=== PATIENT | female | born 1955 | race Hispanic/Latino ===

== ENCOUNTER 2020-02-25 09:55 | Emergency (ER) | payer OTHER ==
[2020-02-25] MEDS ORDERED: PANTOPRAZOLE 40 MG INJ ONE (12:52)
[2020-02-25] MEDS ORDERED: FENTANYL CITR 100 MCG/2 ML ONE (12:52)
[2020-02-25] MEDS ORDERED: NA CHLORIDE 0.9% 1,000 ML ONE (12:52)
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
--- NOTE | 2020-02-25 14:23 | EDPHYS ---
Physician Documentation [facility] Name: Amanda Valle Age: 64 yrs Sex: Female : 1955 Arrival Date: 02/25/2020 Time: 10:00 Bed 20 Private MD: ED Physician Jass Yusuf HPI: 02/24 14:34 This 64 yrs old Female presents to ER via Ambulatory with complaints of Dr. deirdre Brian sent for COVID TESTING. 14:34 Onset: The symptoms/episode began/occurred suddenly, 3 week(s) ago, and became snw persistent. Associated signs and symptoms: The patient has no apparent associated signs or symptoms. Modifying factors: The patient symptoms are alleviated by nothing. hx of migraines but imitrex did not make them cease, repeated shot one week later. Pt states headache is still present every day. The patient has been recently seen by a physician: the patient's primary care provider, Dr. Brian with similar presenting complaints, sent to ED for CoVid testing. Historical: - Allergies: 10:28 PENICILLINS; em - PMHx: 10:28 Anxiety; Depression; High Cholesterol; Kidney stones; Hypertension; em - PSHx: 10:28 Bladder suspension; Hysterectomy; Tonsillectomy; Cholecystectomy; hemoroidectomy; em - Immunization history:: Adult Immunizations up to date. - Social history:: Smoking status: Patient denies any tobacco usage or history of. ROS: 14:34 Constitutional: Negative for fever, chills, and weight loss, Eyes: Negative for injury, snw pain, redness, and discharge, ENT: Negative for injury, pain, and discharge, Neck: Negative for injury, pain, and swelling, Cardiovascular: Negative for chest pain, palpitations, and edema, Respiratory: Negative for shortness of breath, cough, wheezing, and pleuritic chest pain, Abdomen/GI: Negative for abdominal pain, nausea, vomiting, diarrhea, and constipation, Back: Negative for injury and pain, : Negative for injury, bleeding, discharge, and swelling, MS/Extremity: Negative for injury and deformity, Skin: Negative for injury, rash, and discoloration. 14:34 Neuro: Positive for headache. Exam: 14:27 Constitutional: This is a well developed, well nourished patient who is awake, alert, snw and in no acute distress. Eyes: Pupils equal round and reactive to light, extra-ocular motions intact. Lids and lashes normal. Conjunctiva and sclera are non-icteric and not injected. Cornea within normal limits. Periorbital areas with no swelling, redness, or edema. ENT: Nares patent. No nasal discharge, no septal abnormalities noted. Tympanic membranes are normal and external auditory canals are clear. Oropharynx with no redness, swelling, or masses, exudates, or evidence of obstruction, uvula midline. Mucous membranes moist. Neck: Trachea midline, no thyromegaly or masses palpated, and no cervical lymphadenopathy. Supple, full range of motion without nuchal rigidity, or vertebral point tenderness. No Meningismus. Chest/axilla: Normal chest wall appearance and motion. Nontender with no deformity. No lesions are appreciated. Cardiovascular: Regular rate and rhythm with a normal S1 and S2. No gallops, murmurs, or rubs. Normal PMI, no JVD. No pulse deficits. Respiratory: Lungs have equal breath sounds bilaterally, clear to auscultation and percussion. No rales, rhonchi or wheezes noted. No increased work of breathing, no retractions or nasal flaring. Abdomen/GI: Soft, non-tender, with normal bowel sounds. No distension or tympany. No guarding or rebound. No evidence of tenderness throughout. Back: No spinal tenderness. No costovertebral tenderness. Full range of motion. Skin: Warm, dry with normal turgor. Normal color with no rashes, no lesions, and no evidence of cellulitis. MS/ Extremity: Pulses equal, no cyanosis. Neurovascular intact. Full, normal range of motion. Psych: Awake, alert, with orientation to person, place and time. Behavior, mood, and affect are within normal limits. 14:27 Head/face: Noted is tenderness, behind right eye. 14:27 Neuro: Orientation: is normal, Mentation: is normal, Sensation: is normal, seizure activity, is not displayed by the patient, Abnormal movements: there are no abnormal movements. Vital Signs: 10:25 BP 170 / 94; Pulse 61; Resp 18; Temp 98.4; Pulse Ox 99% on R/A; Weight 65.77 kg; Height em 4 ft. 11 in. (149.86 cm); Pain 5/10; 12:45 BP 138 / 72; Pulse 65; Resp 16; Pulse Ox 97% ; bp 13:27 BP 153 / 67; Pulse 65; Resp 17; Pulse Ox 98% ; bp 14:38 BP 152 / 88; Pulse 66; Resp 17; Temp 98.5; Pulse Ox 99% ; bp 10:25 Body Mass Index 29.29 (65.77 kg, 149.86 cm) em MDM: 11:28 Patient medically screened. snw 14:33 Data reviewed: vital signs, nurses notes, lab test result(s). Data interpreted: Pulse snw oximetry: on room air is 98 %. Interpretation: normal. Counseling: I had a detailed discussion with the patient and/or guardian regarding: the historical points, exam findings, and any diagnostic results supporting the discharge/admit diagnosis, the need for outpatient follow up, to return to the emergency department if symptoms worsen or persist or if there are any questions or concerns that arise at home. Special discussion: Based on the history and exam findings, there is no indication for further emergent testing or inpatient evaluation. I discussed with the patient/guardian the need to see the neurologist for further evaluation of the symptoms. I discussed with the patient/guardian the need to see the primary care provider for further evaluation of the symptoms. 14:36 ED course: oxygen mildly resolved symptoms and pt felt she could sleep. Will give high snw dose steroids to try to abort headache.. 02/24 11:28 Order name: Strep; Complete Time: 13:25 snw 02/24 11:28 Order name: COVID-19 snw 02/24 13:23 Order name: Throat Culture EDMS Administered Medications: 12:45 Drug: SOLU-Medrol 1000 mg Route: IVP; Site: right forearm; bp 14:41 Follow up: Response: No adverse reaction bp 12:45 Drug: NS 0.9% 1000 ml Route: IV; Rate: 1 bolus; Site: right forearm; bp 14:42 Follow up: IV Status: Completed infusion; IV Intake: 1000ml bp 12:45 Drug: ProTONIX 40 mg Route: IVP; Site: right forearm; bp 14:42 Follow up: Response: No adverse reaction bp 12:45 Drug: fentaNYL (PF) 50 mcg Route: IM; Site: right deltoid; bp 14:42 Follow up: Response: Pain is decreased bp Disposition: 15:37 Co-signature as Attending Physician, Jass Yusuf MD. rn Disposition: 02/25/20 14:22 Discharged to Home. Impression: Headache. - Condition is Stable. - Discharge Instructions: General Headache Without Cause, Migraine Headache, Analgesic Rebound Headaches, Hypertension, Rehydration, Adult. - Prescriptions for Fiorinal 50- 325-40 mg Oral Capsule - take 1 capsule by ORAL route every 4 hours As needed - not to exceed 6 capsules per day; 20 capsule. orphenadrine citrate 100 mg Oral Tablet Sustained Release - take 1 tablet by ORAL route 2 times per day As needed; 20 tablet. promethazine 25 mg Oral Tablet - take 1 tablet by ORAL route every 6 hours As needed; 20 tablet. - Medication Reconciliation Form, Thank You Letter, Antibiotic Education, Prescription Opioid Use form. - Follow up: Emergency Department; When: As needed; Reason: Worsening of condition. Follow up: Private Physician; When: 2 - 3 days; Reason: Recheck today's complaints, Continuance of care, Re-evaluation by your physician. Signatures: Dispatcher [employer] Alison Ha, ACCOUNTS RECEIVABLE MANAGER-C ACCOUNTS RECEIVABLE MANAGER-Csnw Tay Lee, RN RN Jass Busch MD MD rn Peltier, Brian, RN RN bp Corrections: (The following items were deleted from the chart) 15:08 14:22 02/25/2020 14:22 Discharged to Home. Impression: Headache. Condition is Stable. bp Forms are Medication Reconciliation Form, Thank You Letter, Antibiotic Education, Prescription Opioid Use. Follow up: Emergency Department; When: As needed; Reason: Worsening of condition. Follow up: Private Physician; When: 2 - 3 days; Reason: Recheck today's complaints, Continuance of care, Re-evaluation by your physician. snw
--- OUTSIDE RECORDS SUMMARY | 2020-02-25 14:56 | XMS REPORT | Clinical Summary ---
:1955 Author Organization [facility] Address [address] [place] [address] Care Team Providers Name Role Phone Gunnar Brian MD Primary Care Provider Allergies Not on File Medications Not on file Active Problems Not on file Encounters Date Type Specialty Care Team Description 09/07/2019 Hospital Encounter Radiology Yonis Herrmann MD Tr ansient cerebral ischemic attack , unspecified 09/07/2019 Hospital Encounter Radiology Yonis Herrmann MD Tr ansient cerebral ischemic attack , unspecified 09/06/2019 Transcribe Orders Access Yonis Herrmann MD Tra nsient cerebral ischemic attack , unspecified (Pr imary Dx) 03/21/2019 Hospital Encounter Radiology Gunnar Brian MD Ab normal mammogram 03/21/2019 Hospital Encounter Radiology Gunnar Brian MD Ab normal mammogram after 02/24/2019 Social History Tobacco Use Types Packs/Day Years Used Date Never Assessed Sex Assigned at Date Recorded Not on file Job Start Date Occupation Industry Not on file Not on file Not on file Travel History Travel Start Travel End No recent travel history available. Last Filed Vital Signs Not on file Plan of Treatment Health Maintenance Due Date Last Done Comments CERVICAL CANCER SCREENING 10/25/1975 COLONOSCOPY SCREENING 2004 SHINGLES VACCINES (#1) 2004 65+ PNEUMOCOCCAL VACCINE (1 of 2 - 10/25/2019 PCV13) INFLUENZA VACCINE 03/08/2020 BREAST CANCER SCREENING 03/21/2021 03/21/2019, 03/21/2019, 03/21/2019, Additional history exists Procedures Procedure Name Priority Date/Time Associated Comments Diagnosis MRA HEAD WO CONTRAST Routine 09/07/2019 10:05 Transient cerebr al Results for this AM LEATHER FLESHER ischemic attack, procedure a re in unspecified the results section. MRI BRAIN WO CONTRAST Routine 09/07/2019 10:04 Transient cereb ral Results for this AM [employer]ESHER ischemic attack, procedure a re in unspecified the results section. US BREAST COMPLETE Routine 03/21/2019 11:23 Abnormal mammogram Results for this LEFT AM CDT procedure are i n the results section. MAMMO BREAST Routine 03/21/2019 10:51 Abnormal mammogram Resul ts for this DIAGNOSTIC AM CDT procedure are i n TOMOSYNTHESIS LEFT the resul ts section. after 02/24/2019 Results MRA Head Wo Contrast (09/07/2019 10:05 AM LEATHER FLESHER) Specimen Narrative Performed At EXAMINATION: MRA HEAD WO CONTRAST [facility] CLINICAL HISTORY: G45.9 Transient cerebral ischemic attack unspecified COMPARISON: Same day MRI brain TECHNIQUE: Head MRA using 3D hcre-ao-fhshha technique with multiplanar MIP reconstruction were obtained. FINDINGS: Irregularity of the partially imaged right GAYLE perica llosal artery could be due to intracranial atherosclerosis. Seen on the sagittal maximum intensity projection reformats, series 302 image 38. Otherwise normal flow signal with no significant steno sis or occlusion along bilateral intracranial ICAs, other sites in GAYLE ACAs, and MCAs. The anterior communicating artery comple x is unremarkable. Normal flow signal with no significant stenosis or occ lusion along bilateral vertebral arteries, basilar artery, superior cerebellar arteries, and customer acquisition specialist. The left vertebral artery is domin ant. The posterior communicating arteries are visualized bilaterally. Right PICA not well-visualized, otherwise cerebellar arteries appear patent. No evidence of cerebral aneury sm in the proximal ely [place] within limits of MRA te chnique. IMPRESSION: -Irregularity of the partially imaged right GAYLE perica llosal artery could be due to intracranial atherosclerosis. Seen on the sagittal maximum intensity projection reformats, series 302 lizbet ge 38. Otherwise unremarkable MR angiogram. [id number] Dictated and approved by group president/fellow: Jan Brush M.D. I, Chiqui Dudley M.D., personally reviewed the images and resident's/fellow's findings and agree with the final report. Procedure Note Hm Interface, Radiology Results Incoming - 09/07/2019 3:23 PM LEATHER FLESHER EXAMINATION: MRA HEAD WO CONTRAST CLINICAL HISTORY: G45.9 Transient cereb ral ischemic attack unspecified COMPARISON: Same day MRI brain TECHNIQUE: Head MRA using 3D time-of-fli ght technique with multiplanar MIP reconstruction were obtained. FINDINGS: Irregularity of the partially imaged ri ght GAYLE pericallosal artery could be due to intracranial atherosclerosis. Seen on the sagittal maximum intensity projection reformats, series 302 image 38. Otherwise normal flow signal with no sig nificant stenosis or occlusion along bilateral intracranial ICAs, other sites in GAY[place] ACAs, and MCAs. The anterior communicating artery complex is unremarkable. Normal flow signal with no significant s tenosis or occlusion along bilateral vertebral arteries, basilar artery, superior cerebellar arteries, and customer acquisition specialist. The left vertebral artery is dominant. The posterior communicating arteries are visualized bilaterally. Right PICA not well-visuali zed, otherwise cerebellar arteries appear patent. No evidence of cerebral aneurysm in the proximal ely [place] within limits of MRA technique. IMPRESSION: -Irregularity of the partially imaged ri ght GAYLE pericallosal artery could be due to intracranial atherosclerosis. Seen on the sagittal maximum intensity projection reformats, series 302 image 38. Otherwise unremarkable MR angiogram. [id number] Dictated and approved by radiology resid ent/fellow: Irene Brush M.D. I, Chiqui Dudley M.D., personally review ed the images and resident's/fellow's findings and agree with the final report. Performing Organization Address City/State/Zipcode Phone Number [facility] [address] [place] [address] MRI Brain Wo Contrast (09/07/2019 10:04 AM LEATHER FLESHER) Specimen Narrative Performed At This result has an attachment that is no t available. EXAMINATION: MRI BRAIN WO CONTRAST [facility] CLINICAL HISTORY: Transient cerebral ischemic attack unspecified COMPARISON: None. TECHNIQUE: Multiplanar multisequence MRI examination was performed of the brain without IV contrast. FINDINGS: Mild periventricular and subcortical whi te matter T2 hyperintensities suggestive of chronic microvascular ischemic changes. Chronic lacunar infarct within the right basal ganglia. No evidence of acute infarction, hemorrhage, mass lesion, or midline shift. Ventricles, sulci, and cisterns are age- appropriate in size and configuration. There is no extra-axial fluid collection. Flow voids of the major intracranial vessels are intact. Visualized paranasal sinuses and mastoid air cells are clear. Bones, orbits, and soft tissues are unremarkable. IMPRESSION: No acute intracranial abnorm ality. Specifically no evidence of acute infarction. Evidence of mild chronic small vessel ischemia and chronic right basal ganglia lacunar infarction. [id number] Dictated and approved by group president/fellow: Jan Brush M.D. I, Chiqui Dudley M.D., personally review ed the images and resident's/fellow's findings and agree with the final report. Procedure Note Interface, Radiology Results Incoming - 09/07/2019 3:10 PM LEATHER FLESHER EXAMINATION: MRI BRAIN WO CONTRAST CLINICAL HISTORY: Transient cerebral is chemic attack unspecified COMPARISON: None. TECHNIQUE: Multiplanar multisequence MRI examination was performed of the brain without IV contrast. FINDINGS: Mild periventricular and subcortical whi te matter T2 hyperintensities suggestive of chronic microvascular ischemic changes. Chronic lacunar infarct within the right basal ganglia. No evidence of acute infarction, hemorrhage, mass lesion, or midline shift. Ventricles, sulci, and cisterns are age- appropriate in size and configuration. There is no extra-axial fluid collection. Flow voids of the major intracranial vessels are intact. Visualized paranasal sinuses and mastoid air cells are clear. Bones, orbits, and soft tissues are unremarkable. IMPRESSION: No acute intracranial abnorm ality. Specifically no evidence of acute infarction. Evidence of mild chronic small vessel ischemia and chronic right basal ganglia lacunar infarction. [id number] Dictated and approved by radiology resid ent/fellow: Irene Brush M.D. I, Chiqui Dudley M.D., personally review ed the images and resident's/fellow's findings and agree with the final report. Performing Organization Address City/State/Zipcode Phone Number [facility] [address] [place] [address] US Breast Complete Left (03/21/2019 11:23 AM CDT) Specimen Narrative Performed At PROCEDURE: [facility] MAMMO BREAST DIAGNOSTIC TOMOSYNTHESIS LEFT, US BREAST COMPLETE LEFT 03/21/2019 10:16 AM COMPARISON: Mammograms dated 09/2014 through 09/2018. Left breast ul trasound dated 09/22/2018. TECHNIQUE: Digital left diagnostic mammography with tomosynthesis was performed and interpreted using computer-assisted dete ction. Hand-held high resolution sonographic images of the le ft breast(s) including all 4 quadrants and the retroareolar regions were obtained with color Doppler imaging as needed. CLINICAL HISTORY: 63-year-old female presenting for further evaluation o f one month history of pain in the left breast. Family history not able for two first cousins diagnosed with postmenopausal breast cancer. T he patient is currently on hormonal therapy. FINDINGS: MAMMOGRAM: There are scattered fibroglandular densities. There are no new suspicious masses, calcifications or distortions. Ther e has been no significant interval change in the mammographic appear ance of the left breast. Scattered circumscribed masses a re again seen most notable in the upper outer left breast which wax and wane in size over time and are similar in appearance compared to prior mammograms dating back to 2016 with previous ultrasoun d examination demonstrating multiple cysts. ULTRASOUND: There are no new suspicious cystic or solid masses in the left breast with particular attention paid to the area of focal te nderness endorsed during real-time scanning in the left 3 o'clock positi on 4 cm from the nipple. Scattered and clustered anechoic avascular masses consistent with cysts are seen throug hout the left breast which are similar in appearance compared to abelino or ultrasound performed September 2018 and account for the stable lef t breast masses seen by mammography. The largest groupin g of cysts is seen in the left 2 o'clock position 2 cm from the nipple measuring 1.5 x 1.1 x 0.6 cm in maximal dimension, pre viously 1.4 x 1.1 x 0.4 cm on ultrasound performed 2017. IMPRESSION: Left breast fibrocystic change. No specific mammograph ic or sonographic features of left breast malignancy. Recommend further clinical management of the patient's left breast pain without s uspicious mammographic or sonographic correlates. BI-RADS Category 2. Benign. RECOMMENDATION: Comparison with physical exam and anne-marie al screening mammography. Findings and recommendations were discussed with the p atient at the time of the examination. This facility is accredited by The [employer] for Mammography. A negative x-ray report should not delay biopsy if a d ominant or clinically suspicious mass is present. Not all cancers are identified by x-ray. [id number] Performing Organization Address City/State/Zipcode Phone Number [facility] [address] [place] [address] Mammo Breast Diagnostic Tomosynthesis Left (03/21/2019 10:51 AM CDT) Specimen Narrative Performed At PROCEDURE: [facility] MAMMO BREAST DIAGNOSTIC TOMOSYNTHESIS LEFT, US BREAST COMPLETE LEFT 03/21/2019 10:16 AM COMPARISON: Mammograms dated 09/2014 through 09/2018. Left breast ul trasound dated 09/22/2018. TECHNIQUE: Digital left diagnostic mammography with tomosynthesis was performed and interpreted using computer-assisted dete ction. Hand-held high resolution sonographic images of the le ft breast(s) including all 4 quadrants and the retroareolar regions were obtained with color Doppler imaging as needed. CLINICAL HISTORY: 63-year-old female presenting for further evaluation o f one month history of pain in the left breast. Family history not able for two first cousins diagnosed with postmenopausal breast cancer. T he patient is currently on hormonal therapy. FINDINGS: MAMMOGRAM: There are scattered fibroglandular densities. There are no new suspicious masses, calcifications or distortions. Ther e has been no significant interval change in the mammographic appear ance of the left breast. Scattered circumscribed masses a re again seen most notable in the upper outer left breast which wax and wane in size over time and are similar in appearance compared to prior mammograms dating back to 2016 with previous ultrasoun d examination demonstrating multiple cysts. ULTRASOUND: There are no new suspicious cystic or solid masses in the left breast with particular attention paid to the area of focal te nderness endorsed during real-time scanning in the left 3 o'clock positi on 4 cm from the nipple. Scattered and clustered anechoic avascular masses consistent with cysts are seen throug hout the left breast which are similar in appearance compared to abelino or ultrasound performed September 2018 and account for the stable lef t breast masses seen by mammography. The largest groupin g of cysts is seen in the left 2 o'clock position 2 cm from the nipple measuring 1.5 x 1.1 x 0.6 cm in maximal dimension, pre viously 1.4 x 1.1 x 0.4 cm on ultrasound performed 2017. IMPRESSION: Left breast fibrocystic change. No specific mammograph ic or sonographic features of left breast malignancy. Recommend further clinical management of the patient's left breast pain without s uspicious mammographic or sonographic correlates. BI-RADS Category 2. Benign. RECOMMENDATION: Comparison with physical exam and anne-marie al screening mammography. Findings and recommendations were discussed with the p nishi at the time of the examination. This facility is accredited by The [employer] for Mammography. A negative x-ray report should not delay biopsy if a d ominant or clinically suspicious mass is present. Not all cancers are identified by x-ray. [id number] Performing Organization Address City/State/Zipcode Phone Number [facility] [address] [place] [address] after 02/24/2019 Advance Directives For more information, please contact: [phone] Type Date Recorded Patient Post Form Remover Explanati on Advance Directives, Living Will and Medical Power of Statistics Professor
[2020-02-26 03:41] VITALS: BP 152/88; TEMP 98.5; O2SAT 99
== END 2020-02-25 15:08 | disposition home or self-care (01) ==
LOC: ER 09:55
DX: R51 Headache (principal); Z88.0 Allergy status to penicillin; Z20.828 Contact with and (suspected) exposure to other viral communicable diseases
CPT/HCPCS: 96361; 87070; 87081; 96375; 96372; 96374; 99284; U0001; C9113; J3010; J2930; J7030

== ENCOUNTER 2020-03-08 16:44 | Emergency (ER) | payer OTHER ==
--- OUTSIDE RECORDS SUMMARY | 2020-03-08 16:46 | XMS REPORT | Clinical Summary ---
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 MRI BRAIN WO CONTRAST Routine 09/07/2019 10:04 Transient cereb ral Results for this AM PRIVATE BRANCH EXCHANGE REPAIRER ischemic attack, procedure a re in unspecified the results section. US BREAST COMPLETE Routine 03/21/2019 11:23 Abnormal mammogram Results for this LEFT AM CDT procedure are i n the results section. MAMMO BREAST Routine 03/21/2019 10:51 Abnormal mammogram Resul ts for this DIAGNOSTIC AM CDT procedure are i n TOMOSYNTHESIS LEFT the resul ts section. after 03/08/2019 Results MRA Head Wo Contrast (09/07/2019 10:05 AM PRIVATE BRANCH EXCHANGE REPAIRER) Specimen Narrative Performed At EXAMINATION: MRA HEAD WO CONTRAST [facility] CLINICAL HISTORY: G45.9 Transient cerebral ischemic attack unspecified COMPARISON: Same day MRI brain TECHNIQUE: Head MRA using 3D hnex-wi-whapcl technique with multiplanar MIP reconstruction were obtained. [...] arteries, basilar artery, superior cerebellar arteries, and director of community services. The left vertebral artery is domin ant. The posterior communicating arteries are visualized bilaterally. Right PICA not well-visualized, otherwise cerebellar arteries appear patent. No evidence of cerebral aneury sm in the proximal [place] within limits of MRA te chnique. IMPRESSION: -Irregularity of the partially imaged right GAYLE perica llosal artery could be due to intracranial atherosclerosis. Seen on the sagittal maximum intensity projection reformats, series 302 lizbet ge 38. Otherwise unremarkable MR angiogram. [id number] Dictated and approved by global president/fellow: Jan Brush M.D. I, Chiqui Dudley M.D., personally reviewed the images and resident's/fellow's findings and agree with the final report. Procedure Note Hm Interface, Radiology Results Incoming - 09/07/2019 3:23 PM PRIVATE BRANCH EXCHANGE REPAIRER EXAMINATION: MRA HEAD WO CONTRAST CLINICAL HISTORY: [...] arteries, basilar artery, superior cerebellar arteries, and director of community services. The left vertebral artery is dominant. The posterior communicating arteries are visualized bilaterally. Right PICA not well-visuali zed, otherwise cerebellar arteries appear patent. No evidence of cerebral aneurysm in the proximal [place] within limits of MRA technique. IMPRESSION: -Irregularity of the partially imaged ri ght GAYLE pericallosal artery could be due to intracranial atherosclerosis. Seen on the sagittal maximum intensity projection reformats, series 302 image 38. Otherwise unremarkable MR angiogram. [id number] Dictated and approved by radiology resid ent/fellow: Irene Brush M.D. I, Chiqui Dudley M.D., personally review ed the images and resident's/fellow's findings and agree with the final report. Performing Organization Address City/State/Zipcode Phone Number [facility] [address] [place] [address] MRI Brain Wo Contrast (09/07/2019 10:04 AM PRIVATE BRANCH EXCHANGE REPAIRER) Specimen Narrative Performed At This result has an attachment that is no t available. EXAMINATION: MRI BRAIN WO CONTRAST [facility] CLINICAL HISTORY: Transient cerebral ischemic attack unspecified [...] and chronic right basal ganglia lacunar infarction. [id number] Dictated and approved by global president/fellow: Jan Brush M.D. I, Chiqui Dudley M.D., personally review ed the images and resident's/fellow's findings and agree with the final report. Procedure Note Interface, Radiology Results Incoming - 09/07/2019 3:10 PM PRIVATE BRANCH EXCHANGE REPAIRER EXAMINATION: MRI BRAIN WO CONTRAST CLINICAL HISTORY: [...] and chronic right basal ganglia lacunar infarction. [id number] Dictated and approved by radiology resid ent/fellow: Irene Brush M.D. I, Chiqui Dudley M.D., personally review ed the images and resident's/fellow's findings and agree with the final report. Performing Organization Address City/State/Zipcode Phone Number [facility] [address] [place] [address] US Breast Complete Left (03/21/2019 11:23 AM [...] examination. This facility is accredited by The [employer] for Mammography. A negative x-ray report should not delay biopsy if a d ominant or clinically suspicious mass is present. Not all cancers are identified by x-ray. [id number] Performing Organization Address City/State/Zipcode Phone Number [facility] [address] [place] [address] Mammo Breast Diagnostic Tomosynthesis Left (03/21/2019 10:51 [...] examination. This facility is accredited by The [employer] for Mammography. A negative x-ray report should not delay biopsy if a d ominant or clinically suspicious mass is present. Not all cancers are identified by x-ray. 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
[2020-03-08] MEDS ORDERED: DIAZEPAM 5 MG TABLET ONE (17:31)
[2020-03-08] MEDS ORDERED: ONDANSETRON 4 MG/2 ML VIAL ONE (17:32)
[2020-03-08] MEDS ORDERED: MECLIZINE HCL 12.5 MG TAB ONE (17:32)
[2020-03-08] MEDS ORDERED: FAMOTIDINE 20 MG/2 ML VIAL IV ONE (17:32)
--- NOTE | 2020-03-08 17:39 | RAD REPORT ---
EXAM DESCRIPTION: CT - Head Brain Wo Cont - 03/08/2020 5:29 pm CLINICAL HISTORY: DIZZINESS Headache, drowsiness COMPARISON: CTANGIO HEAD dated 05/14/2014; HEAD BRAIN W O CONTRAST dated 01/13/2011 TECHNIQUE: All CT scans are performed using dose optimization technique as appropriate and may inclu de automated exposure control or mA/KV adjustment according to patient size. FINDINGS: No intracranial hemorrhage, hydrocephalus or extra-axial fluid collection.Mild periventric ular chronic microvascular ischemic changes. Old right-sided lacune noted.No areas of brain edema or evidence of midline shift. The paranasal sinuses and mastoids are clear. The calvarium is intact. IMPRESSION: No acute intracranial abnormality.
[2020-03-08 18:07] LABS: Absolute Lymphocytes (CBC) 1.3 K/uL (0.7-4.9); Basophils % 0.5 % (0-1.3); Hematocrit 42.4 % (36.0-45.0); MPV 8.8 fL (7.6-11.3); RBC Red Blood Cell Count 4.45 M/uL (3.86-4.86)
[2020-03-08 18:08] LABS: Protime INR 1.02
--- NOTE | 2020-03-08 18:24 | RAD REPORT ---
EXAM DESCRIPTION: RAD - Chest Single View - 03/08/2020 5:37 pm CLINICAL HISTORY: Dizzy Chest pain. COMPARISON: CHEST SINGLE VIEW dated 09/01/2013; CHEST PA AND LAT 2 VIEW dated 01/13/2011; CHEST PA AND LAT 2 VIEW dated 06/22/2006 FINDINGS: Portable technique limits examination quality. The lungs are grossly clear. The heart is normal in size. No displaced fractures. IMPRESSION: No acute intrathoracic process suspected.
[2020-03-08 18:25] LABS: ALT/SGPT 63 U/L (12-78); AST/SGOT 41 U/L (15-37); Albumin 3.8 g/dL (3.4-5.0); Alkaline Phosphatase 107 U/L (45-117); BUN Blood Urea Nitrogen 20 mg/dL (7-18); Bicarbonate 24 mmol/L (21-32); Bilirubin Direct 0.1 mg/dL (0-0.2); Bilirubin Total 0.5 mg/dL (0.2-1.0); Glucose Level 141 mg/dL (74-106); Magnesium 2.1 mg/dL (1.8-2.4); Potassium 3.7 mmol/L (3.5-5.1); Protein, Total 7.3 g/dL (6.4-8.2); Sodium Level 142 mmol/L (136-145); Troponin (Emerg Dept Use Only) < 0.02 ng/mL (0.0-0.045)
--- NOTE | 2020-03-08 18:59 | ER ---
Nurse's Notes [facility] Name: Amanda Valle Age: 64 yrs Sex: Female : 1955 Arrival Date: 03/08/2020 Time: 16:50 Bed 2 Private MD: Gunnar Brian Diagnosis: Vertigo of central origin, unspecified ear;Dizziness, headache Presentation: 03/08 17:09 Chief complaint: Patient states: Evaluated in ED and by neurologist previously for ss cluster headaches, pending CT. Dizziness and vomiting that began today. Coronavirus screen: Client denies travel out of the [place] in the last 14 days. At this time, the client does not indicate any symptoms associated with coronavirus-19. Ebola Screen: Patient denies exposure to infectious person. Patient denies travel to an Ebola-affected area in the 21 days before illness onset. Initial Sepsis Screen: Does the patient meet any 2 criteria? No. Patient's initial sepsis screen is negative. Does the patient have a suspected source of infection? No. Patient's initial sepsis screen is negative. Risk Assessment: Do you want to hurt yourself or someone else? Patient reports no desire to harm self or others. Onset of symptoms is unknown. 17:09 Method Of Arrival: Ambulatory ss 17:09 Acuity: ANDER 3 ss Triage Assessment: 19:40 General: Appears in no apparent distress. Behavior is calm, cooperative. GI: Reports ll1 nausea, vomiting. Historical: - Allergies: 17:11 PENICILLINS; ss - PMHx: 17:11 Anxiety; Depression; High Cholesterol; Hypertension; Kidney stones; ss - PSHx: 17:11 Bladder suspension; Hysterectomy; Tonsillectomy; Cholecystectomy; hemoroidectomy; ss - Immunization history:: Adult Immunizations unknown. - Social history:: Smoking status: Patient denies any tobacco usage or history of. Screenin:39 Abuse screen: Denies threats or abuse. Nutritional screening: No deficits noted. ll1 Tuberculosis screening: No symptoms or risk factors identified. Fall Risk Secondary diagnosis (15 points) vertigo. IV access (20 points). Gait- Weak (10 pts.). Total Delgado Fall Scale indicates High Risk Score (45 or more points). Fall prevention measures have been instituted. Side Rails Up X 2 Placed Close to Nursing Station Frequent Obs/Assessments Occuring As available patient and family educated on Fall Prevention Program and Strategies. Assessment: 17:30 General: Appears in no apparent distress. Behavior is calm, cooperative. Pain: ll1 Complains of pain in head Pain currently is 4 out of 10 on a pain scale. Quality of pain is described as aching, Pain began 2-3 days ago. Neuro: Level of Consciousness is awake, alert, obeys commands, Oriented to person, place, time, situation, Appropriate for age Configuration Engineer are equal bilaterally Moves all extremities. Full function Gait is steady, Speech is normal, Facial symmetry appears normal, Pupils are PERRLA, Reports dizziness, headache. Cardiovascular: No deficits noted. Respiratory: No deficits noted. GI: Abdomen is flat, Bowel sounds present X 4 quads. Abd is soft and non tender X 4 quads. Reports nausea, vomiting. : No deficits noted. 18:30 Reassessment: Patient appears in no apparent distress at this time. No changes from ll1 previously documented assessment. Patient and/or family updated on plan of care and expected duration. Pain level reassessed. Patient is alert, oriented x 3, equal unlabored respirations, skin warm/dry/pink. 19:30 Reassessment: Patient appears in no apparent distress at this time. No changes from ll1 previously documented assessment. Patient and/or family updated on plan of care and expected duration. Pain level reassessed. Patient is alert, oriented x 3, equal unlabored respirations, skin warm/dry/pink. Vital Signs: 17:09 BP 150 / 75; Pulse 72; Resp 15; Temp 97.3(TE); Pulse Ox 98% on R/A; Weight 65.77 kg; Height 4 ft. 11 in. (149.86 cm); Pain 4/10; 19:30 BP 125 / 64; Pulse 75; Resp 17; Pulse Ox 97% ; Pain 4/10; ll1 17:09 Body Mass Index 29.29 (65.77 kg, 149.86 cm) ED Course: 16:50 Patient arrived in ED. mr 16:50 Gunnar Brian MD is Private Physician. mr 16:55 Phillip Tran MD is Attending Physician. kdr 17:05 Richard Mason, TEODORA is Primary Nurse. ll1 17:11 Triage completed. ss 17:11 Arm band placed on right wrist. ss 17:29 CT Head Brain wo Cont In Process Unspecified. EDMS 17:30 Inserted saline lock: 22 gauge in right antecubital area, using aseptic technique. ll1 Blood collected. 17:37 XRAY Chest (1 view) In Process Unspecified. EDMS 18:57 Gunnar Brian MD is Referral Physician. kdr 19:33 IV discontinued, intact, bleeding controlled, No redness/swelling at site. Pressure ll1 dressing applied. 19:40 Patient has correct armband on for positive identification. Placed in gown. Bed in low ll1 position. Call light in reach. Side rails up X2. 19:40 No provider procedures requiring assistance completed. ll1 Administered Medications: 17:54 Drug: Zofran (Ondansetron) 4 mg Route: IVP; Site: right antecubital; ll1 19:41 Follow up: Response: No adverse reaction; RASS: Alert and Calm (0) ll1 17:54 Drug: Pepcid 20 mg Route: IVP; Site: right antecubital; ll1 19:41 Follow up: Response: No adverse reaction; RASS: Alert and Calm (0) ll1 18:11 Drug: Meclizine 25 mg Route: PO; ll1 19:42 Follow up: Response: No adverse reaction; RASS: Alert and Calm (0) ll1 18:11 Drug: Valium 5 mg Route: PO; ll1 19:41 Follow up: Response: No adverse reaction; RASS: Alert and Calm (0) ll1 Outcome: 18:58 Discharge ordered by . kdr 19:35 Patient left the ED. ll1 19:41 Discharged to home via wheelchair. ll1 19:41 Condition: stable 19:41 Discharge instructions given to patient, Instructed on discharge instructions, follow up and referral plans. no drinking with medication, no driving heavy equipment, medication usage, Demonstrated understanding of instructions, follow-up care, medications, Prescriptions given X 2. Signatures: Dispatcher [employer] EDMS Phillip Tran MD MD kdr Rivera, Chel Acuna RN RN ss Lewis, Lynsay, RN RN ll1
--- NOTE | 2020-03-08 18:59 | EDPHYS ---
Physician Documentation [facility] Name: Amanda Valle Age: 64 yrs Sex: Female : 1955 Arrival Date: 03/08/2020 Time: 16:50 Bed 2 Private MD: Gunnar Brian ED Physician Phillip Tran HPI: 03/08 17:10 This 64 yrs old Female presents to ER via Unassigned with complaints of kdr Vomiting, Dizziness. 17:10 The patient presents with dizziness, lightheadedness, feeling off balance, sense of kdr spinning, vertigo. Onset: The symptoms/episode began/occurred suddenly, this morning. Context: occurred at home, occurred while the patient was asleep, just prior to the episode the patient experienced no apparent symptoms. Modifying factors: The symptoms are alleviated by holding head still, the symptoms are aggravated by movement of head. Associated signs and symptoms: Pertinent positives: nausea, vomiting, Pertinent negatives: abdominal pain, agitation, ataxia, blurred vision, chest pain, combativeness, confusion, diaphoresis, focal weakness, near-syncope, numbness, palpitations, , seizure, shortness of breath, syncope. Severity of symptoms: At their worst the symptoms were severe incapacitating just prior to arrival, in the emergency department the symptoms have improved moderately. Patient's baseline: Neuro: alert and fully oriented, Motor: no deficits, Ambulation: walks without assistance, Speech: normal, The patient has a previous history of CVA, head injury, near-syncope, seizure disorder, syncope. The patient has experienced a previous episode, Not nearly as severe as today. The patient has not recently seen a physician. Historical: - Allergies: 17:11 PENICILLINS; ss - PMHx: 17:11 Anxiety; Depression; High Cholesterol; Hypertension; Kidney stones; ss - PSHx: 17:11 Bladder suspension; Hysterectomy; Tonsillectomy; Cholecystectomy; hemoroidectomy; ss - Immunization history:: Adult Immunizations unknown. - Social history:: Smoking status: Patient denies any tobacco usage or history of. ROS: 17:10 Constitutional: Negative for fever, chills, and weight loss, Eyes: Negative for injury, kdr pain, redness, and discharge, ENT: Negative for injury, pain, and discharge, Neck: Negative for injury, pain, and swelling, Cardiovascular: Negative for chest pain, palpitations, and edema, Respiratory: Negative for shortness of breath, cough, wheezing, and pleuritic chest pain, Back: Negative for injury and pain, : Negative for injury, bleeding, discharge, and swelling, MS/Extremity: Negative for injury and deformity, Skin: Negative for injury, rash, and discoloration, Psych: Negative for depression, anxiety, suicide ideation, homicidal ideation, and hallucinations, Allergy/Immunology: Negative for hives, rash, and allergies, Endocrine: Negative for neck swelling, polydipsia, polyuria, polyphagia, and marked weight changes, Hematologic/Lymphatic: Negative for swollen nodes, abnormal bleeding, and unusual bruising. 17:10 Abdomen/GI: Positive for nausea and vomiting, Negative for diarrhea, constipation, abdominal cramps, abdominal distension, black/tarry stool, rectal pain, rectal bleeding. Exam: 17:10 Constitutional: This is a well developed, well nourished patient who is awake, alert, kdr and in no acute distress. Head/Face: Normocephalic, atraumatic. Eyes: Pupils equal round and reactive to light, extra-ocular motions intact. Lids and lashes normal. Conjunctiva and sclera are non-icteric and not injected. Cornea within normal limits. Periorbital areas with no swelling, redness, or edema. Neck: Trachea midline, no thyromegaly or masses palpated, and no cervical lymphadenopathy. Supple, full range of motion without nuchal rigidity, or vertebral point tenderness. No Meningismus. Chest/axilla: Normal chest wall appearance and motion. Nontender with no deformity. No lesions are appreciated. Cardiovascular: Regular rate and rhythm with a normal S1 and S2. No gallops, murmurs, or rubs. Normal PMI, no JVD. No pulse deficits. Respiratory: Lungs have equal breath sounds bilaterally, clear to auscultation and percussion. No rales, rhonchi or wheezes noted. No increased work of breathing, no retractions or nasal flaring. Abdomen/GI: Soft, non-tender, with normal bowel sounds. No distension or tympany. No guarding or rebound. No evidence of tenderness throughout. Back: No spinal tenderness. No costovertebral tenderness. Full range of motion. Skin: Warm, dry with normal turgor. Normal color with no rashes, no lesions, and no evidence of cellulitis. MS/ Extremity: Pulses equal, no cyanosis. Neurovascular intact. Full, normal range of motion. Neuro: Awake and alert, GCS 15, oriented to person, place, time, and situation. Cranial nerves II-XII grossly intact. Motor strength 5/5 in all extremities. Sensory grossly intact. Cerebellar exam normal. Normal gait. Psych: Awake, alert, with orientation to person, place and time. Behavior, mood, and affect are within normal limits. 18:26 ECG was reviewed by the Attending Physician. kdr Vital Signs: 17:09 BP 150 / 75; Pulse 72; Resp 15; Temp 97.3(TE); Pulse Ox 98% on R/A; Weight 65.77 kg; ss Height 4 ft. 11 in. (149.86 cm); Pain 4/10; 19:30 BP 125 / 64; Pulse 75; Resp 17; Pulse Ox 97% ; Pain 4/10; ll1 17:09 Body Mass Index 29.29 (65.77 kg, 149.86 cm) ss MDM: 17:10 Data reviewed: vital signs, nurses notes, lab test result(s), EKG, radiologic studies. kdr Counseling: I had a detailed discussion with the patient and/or guardian regarding: the historical points, exam findings, and any diagnostic results supporting the discharge/admit diagnosis, lab results, radiology results, the need for outpatient follow up. 18:56 ED course: The patient was greatly improved with the interventions given. She was happy kdr with the care provided and the plan for discharge and follow-up.. 18:58 Patient medically screened. [facility] 03/08 17:09 Order name: Basic Metabolic Panel; Complete Time: 18:50 [facility] 03/08 17:09 Order name: CBC with Diff; Complete Time: 18:20 [facility] 03/08 17:09 Order name: LFT's; Complete Time: 18:50 [facility] 03/08 17:09 Order name: Magnesium; Complete Time: 18:50 [facility] 03/08 17:09 Order name: PT-INR; Complete Time: 18:20 [facility] 03/08 17:09 Order name: Troponin (emerg Dept Use Only); Complete Time: 18:50 [facility] 03/08 17:09 Order name: XRAY Chest (1 view); Complete Time: 18:50 kdr 03/08 17:09 Order name: EKG; Complete Time: 17:10 kdr 03/08 17:09 Order name: Cardiac monitoring; Complete Time: 19:42 kdr 03/08 17:09 Order name: CT Head Brain wo Cont; Complete Time: 18:20 kdr 03/08 17:09 Order name: EKG - Nurse/Tech; Complete Time: 18:11 kdr 03/08 17:09 Order name: IV Saline Lock; Complete Time: 17:29 kdr 03/08 17:09 Order name: Labs collected and sent; Complete Time: 17:28 kdr 03/08 17:09 Order name: O2 Per Protocol; Complete Time: 17:28 kdr 03/08 17:09 Order name: O2 Sat Monitoring; Complete Time: 17:28 kdr EC:26 Rate is 61 beats/min. Rhythm is regular, Normal Sinus Rhythm with No ectopy. QRS Royal kdr is Normal. MA interval is normal. QRS interval is normal. QT interval is normal. No Q waves. Clinical impression: Normal ECG. Administered Medications: 17:54 Drug: Zofran (Ondansetron) 4 mg Route: IVP; Site: right antecubital; ll1 19:41 Follow up: Response: No adverse reaction; RASS: Alert and Calm (0) ll1 17:54 Drug: Pepcid 20 mg Route: IVP; Site: right antecubital; ll1 19:41 Follow up: Response: No adverse reaction; RASS: Alert and Calm (0) ll1 18:11 Drug: Meclizine 25 mg Route: PO; ll1 19:42 Follow up: Response: No adverse reaction; RASS: Alert and Calm (0) ll1 18:11 Drug: Valium 5 mg Route: PO; ll1 19:41 Follow up: Response: No adverse reaction; RASS: Alert and Calm (0) ll1 Disposition: 03/08/20 18:58 Discharged to Home. Impression: Vertigo of central origin, unspecified ear, Dizziness, headache. - Condition is Stable. - Discharge Instructions: Vertigo, [id number], Dizziness, [id number]. - Prescriptions for Meclizine 25 mg Oral Tablet - take 1 tablet by ORAL route every 8 hours As needed; 18 tablet. Valium 2 mg Oral Tablet - take 1 tablet by ORAL route every 8 hours As needed; 12 tablet. - Medication Reconciliation Form, Thank You Letter form. - Follow up: Gunnar Brian MD; When: 2 - 3 days; Reason: If symptoms return, Further diagnostic work-up, Recheck today's complaints, Continuance of care, Re-evaluation by your physician. - Problem is new. - Symptoms have improved. Signatures: Dispatcher [employer] EDPA Phillip Tran MD MD kdr Chel Epps RN RN Richard Mason RN RN ll1 Corrections: (The following items were deleted from the chart) 19:35 18:58 03/08/2020 18:58 Discharged to Home. Impression: Vertigo of central origin, ll1 unspecified ear; Dizziness, headache. Condition is Stable. Forms are Medication Reconciliation Form, Thank You Letter, Antibiotic Education, Prescription Opioid Use. Follow up: Gunnar Brian; When: 2 - 3 days; Reason: If symptoms return, Further diagnostic work-up, Recheck today's complaints, Continuance of care, Re-evaluation by your physician. Problem is new. Symptoms have improved. kdr
[2020-03-08 19:39] VITALS: BP 150/75; TEMP 97.3; O2SAT 98
== END 2020-03-08 19:35 | disposition home or self-care (01) ==
LOC: ER 16:44
DX: H81.4 Vertigo of central origin (principal); R51 Headache; I10 Essential (primary) hypertension; Z88.0 Allergy status to penicillin
CPT/HCPCS: 93005; 85025; 80048; 36415; 83735; 85610; 80076; 84484; 70450; 71045; 96375; 96374; 99284; J2405; J8597

== ENCOUNTER 2021-09-10 17:29 | Emergency (ER) | payer OTHER ==
--- OUTSIDE RECORDS SUMMARY | 2021-09-10 17:33 | XMS REPORT | Continuity of Care Document ---
:1955 Author Organization [facility] t Address [address] [place] [address] Care Team Providers Name Role Phone Sherin Brian Primary Care Physician SHERIN BRIAN Attending Clinician Unavailable NATI LOPEZ Attending Clinician Unavailable ERGNAS SYED Attending Clinician Unavailable Provider, Ang [facility] Attending Clinician Unavailable Herminia ARAIZA, T Attending Clinician Unavailable Only, Test Attending Clinician Unavailable Tao BOWERS, A Attending Clinician Aubree BURGER Attending Clinician Unavailable Doctor Unassigned, Name Attending Clinician Unavailable CARLOS EDUARDO Attending Clinician Unavailable Lab, Fam Pob I Attending Clinician Unavailable Carlos Eduardo BOWERS Attending Clinician Pcp, Does Not Have A Attending Clinician Provider, Urgent Care Attending Clinician Unavailable Anene ATHLETIC TEAM PHYSICIAN Attending Clinician ANENE Attending Clinician Unavailable HUST Admitting Clinician Unavailable ERGUN Admitting Clinician Unavailable Payers Payer Name Policy Type Policy Number Effective Date Expiration Date S ource Problems Condition Condition Condition Status Onset Resolution Last Treating Co mments Source Name Details Category Date Date Treatment Clinician Date No known No known Disease Unive rs active active ity of problems problems [facility] Allergies, Adverse Reactions, Alerts Allergy Allergy Status Severity Reaction(s) Onset Inactive Treating Comm ents Source Name Type Date Date Clinician Penicill Propensi Active Rash Univer s in ty to 1-25 ity of adverse 00:00: [place] reaction 00 Medical s Branch PENICILL DRUG Active Rash Univers IN INGREDI -25 ity of 00:00: [address] NO KNOWN Drug Active Univers ALLERGIE Class ity of S [facility] Social History Social Habit Start Date Stop Date Quantity Comments Source Exposure to Not sure [facility] SARS-CoV-2 (event) Medica Branch Sex Ass[birth year] At [birth year] [facility] y of [place] 00:00:00 00:00:00 Medical Branch Smoking Status Start Date Stop Date Source Unknown if ever smoked [facility] y [facility] Never smoker [facility] Medications Ordered Filled Start Stop Current Ordering Indication Dosage Frequency Signature Comments Components Source Medication Medication Date Date Medication? Clinician (SIG) Name Name No known No Univers medications 1-25 ity of 15:27: [address] No known No Univers medications 1-25 ity of 15:27: [address] No known No Univers medications 1-25 ity of 15:27: [address] No known No Univers medications 1-25 ity of 15:27: [address] No known No Univers medications 1-25 ity of 15:27: [address] No known No Univers medications 1-25 ity of 15:27: [address] No known No Univers medications 1-25 ity of 15:27: [address] No known No Univers medications ity of [facility] No known No Univers medications ity of [facility] No known No Univers medications ity of [facility] No known No Univers medications ity of [facility] Immunizations Ordered Filled Immunization Date Status Comments Sourc e Immunization Name Name SARS-COV-2 COVID-19 2020-10-25 Completed Unive rsity of PFIZER VACCINE 00:00:00 [facility] SARS-COV-2 COVID-19 2020-10-25 Completed Unive rsity of PFIZER VACCINE 00:00:00 [facility] SARS-COV-2 COVID-19 2020-10-25 Completed Unive rsity of PFIZER VACCINE 00:00:00 [facility] SARS-COV-2 COVID-19 2020-10-25 Completed Unive rsity of PFIZER VACCINE 00:00:00 [facility] SARS-COV-2 COVID-19 2020-10-25 Completed Unive rsity of PFIZER VACCINE 00:00:00 [facility] SARS-COV-2 COVID-19 2020-10-25 Completed Unive rsity of PFIZER VACCINE 00:00:00 [facility] SARS-COV-2 COVID-19 2020-10-25 Completed Unive rsity of PFIZER VACCINE 00:00:00 [facility] SARS-COV-2 COVID-19 2020-10-25 Completed Unive rsity of PFIZER VACCINE 00:00:00 [facility] SARS-COV-2 COVID-19 2020-10-25 Completed Unive rsity of PFIZER VACCINE 00:00:00 [facility] SARS-COV-2 COVID-19 2020-10-04 Completed Unive rsity of PFIZER VACCINE 00:00:00 [facility] SARS-COV-2 COVID-19 2020-10-04 Completed Unive rsity of PFIZER VACCINE 00:00:00 [facility] SARS-COV-2 COVID-19 2020-10-04 Completed Unive rsity of PFIZER VACCINE 00:00:00 [facility] SARS-COV-2 COVID-19 2020-10-04 Completed Unive rsity of PFIZER VACCINE 00:00:00 [facility] SARS-COV-2 COVID-19 2020-10-04 Completed Unive rsity of PFIZER VACCINE 00:00:00 [facility] SARS-COV-2 COVID-19 2020-10-04 Completed Unive rsity of PFIZER VACCINE 00:00:00 [facility] SARS-COV-2 COVID-19 2020-10-04 Completed Unive rsity of PFIZER VACCINE 00:00:00 [facility] SARS-COV-2 COVID-19 2020-10-04 Completed Unive rsity of PFIZER VACCINE 00:00:00 [facility] SARS-COV-2 COVID-19 2020-10-04 Completed Unive rsity of PFIZER VACCINE 00:00:00 [facility] Vital Signs Vital Name Observation Time Observation Value Comments Source Oxygen saturation in 2020-09-01 21:13:00 96 /min earlobe University of Arterial blood by [facility] Pulse oximetry Branch Systolic blood 2020-09-01 21:07:00 129 mm[Hg] Univer sity of pressure [facility] Diastolic blood 2020-09-01 21:07:00 77 mm[Hg] Unive rsity of pressure [place] [facility] Heart rate 2020-09-01 21:07:00 99 /min [facility] [place] [facility] Body temperature 2020-09-01 21:07:00 37.33 Idalia Univ ersity of [place] [facility] Respiratory rate 2020-09-01 21:07:00 18 /min Univ ersity of [place] [facility] Body height 2020-09-01 21:07:00 124.5 cm [facility] [place] [facility] Body weight 2020-09-01 21:07:00 65.772 kg [facility] [place] [facility] BMI 2020-09-01 21:07:00 42.46 kg/m2 [facility]i ty of [place] [facility] [place] Oxygen saturation in 2020-09-01 21:13:00 96 /min earlobe University of Arterial blood by [facility] Pulse oximetry Branch Systolic blood 2020-09-01 21:07:00 129 mm[Hg] Univer sity of pressure [place] [facility] Diastolic blood 2020-09-01 21:07:00 77 mm[Hg] Unive rsity of pressure [place] [facility] Heart rate 2020-09-01 21:07:00 99 /min [facility] [place] [facility] Body temperature 2020-09-01 21:07:00 37.33 [place] Univ ers[facility] [place] [facility] Respiratory rate 2020-09-01 21:07:00 18 /min Univ ers[facility] [place] [facility] Body height 2020-09-01 21:07:00 124.5 cm [facility] [place] [facility] Body weight 2020-09-01 21:07:00 65.772 kg [facility] [place] [facility] BMI 2020-09-01 21:07:00 42.46 kg/m2 [facility] [place] [facility] Procedures Procedure Date / Time Performed Performing Clinician Juan e ASSIGNMENT OF BENEFITS 2021-04-24 21:34:29 Doctor Unassigned, No [facility] Name Medical Branch ASSIGNMENT OF BENEFITS 2021-03-09 20:50:33 Doctor Unassigned, No [facility] Encounters Start End Encounter Admission Attending Care Care Encounter Source Date/Time Date/Time Type Type Clinicians Facility Department ID 2021-08-17 2021-08-17 Outpatient [facility] [id number] [place] 00:00:00 00:00:00 SHERIN 102 Method i 2021-07-24 2021-07-24 Outpatient HUST, [facility] [id number] [place] 00:00:00 00:00:00 NATI Mcdonald Method i 2021-04-28 2021-04-28 Outpatient ERGUN, [facility] [id number] [place] 00:00:00 00:00:00 NAS 093 Method i 2021-04-27 2021-04-27 Telephone Provider, [facility] [id number] [facility] 00:00:00 00:00:00 [facility] [id number] it y of Urgent Care [place] [id number] [facility]?Blea [phone] [address] Medical Office Building 2021-04-25 2021-04-25 Outpatient R [facility] [id number] Univers 09:30:00 09:30:00 [id number] ity [facility] 2021-04-25 2021-04-25 Letter BRITTANY Hope [id number] Univers 00:00:00 00:00:00 (Out) Chery BROWN [id number] it y of [facility] [id number] Jamel [id number] [facility] 019 [place] 2021-04-24 2021-04-24 Laboratory Only, Adc Test [facility] [id number]. [id number] Univers 16:33:54 16:48:54 Only Ashkan Burger [id number] ity [facility] [id number] [facility] [id number] [facility] 353 Branch 2021-04-24 2021-04-24 Outpatient [facility] [id number] Univers 16:30:00 16:30:00 [id number] ity [facility] 2021-04-24 2021-04-24 Outpatient R TAO [facility] [id number] Univers 16:30:00 16:30:00 [facility] 2021-04-[facility] 2021-04-24 Orders Doctor BRITTANY [id number] Univers 00:00:00 00:00:00 Only Unassigned, KEVIN [id number] ity of [place] [facility] [id number] Jamel as [phone] [address] 2021-03-09 2021-03-09 Outpatient R CARLOS EDUARDO [facility] [id number] Univers 16:20:00 16:20:00 JEMIMA ity [facility] 2021-03-09 2021-03-09 Outpatient R [facility] [id number] Univers 16:20:00 16:20:00 [id number] ity [facility] 2021-03-09 2021-03-09 Laboratory Lab, Adc Fam Pob I [facility] [id number] Univers 15:51:25 16:11:25 Only Carlos Eduardo [facility] [id number] ity of [place] [id number] Jamel as Professio [phone] [address] Office Building One 2021-03-09 2021-03-09 Orders Doctor BRITTANY [id number] Univers 00:00:00 00:00:00 Only Unassigned, KEVIN [id number] ity of [place] [facility] [id number] Jamel as [phone] [address] 2020-09-03 2020-09-03 Telephone [id number] 00:00:00 00:00:00 Patient KEVIN [id number] Does Not HOSPITAL [id number] Have A [id number] [id number] 2020-09-03 2020-09-03 Telephone [id number] Univers 00:00:00 00:00:00 Patient KEVIN [id number] it y of Does Not HOSPITAL [id number] [place] Have A [id number] [address] 2020-09-01 2020-09-01 Urgent Provider, [facility] [id number] 14:57:44 15:17:44 Care [facility] [id number] Care [place] [id number] Professio [phone] [place] [address] Office Building One 2020-09-01 2020-09-01 Urgent Provider, Ang [facility] [id number] Univers 14:57:44 15:17:44 Care Jarod Morenoa [facility] [id number] ity of [place] [id number] Jamel as Professio [phone] Hi dical [address] Office Building One 2020-09-01 2020-09-01 Outpatient R EMELY [facility] [id number] Univers 15:00:00 15:00:00 RAFAELA coronado [facility] 2020-09-01 2020-09-01 Letter Doctor BRITTANY [id number] 00:00:00 00:00:00 (Out) Unassigned, KEVIN [id number] [place] [facility] [id number] [facility] 2020-09-01 2020-09-01 Letter Doctor BRITTANY [id number] Univers 00:00:00 00:00:00 (Out) Unassigned, KEVIN [id number] [facility] [id number] Jamel as [phone] [address] 2020-05-14 2020-05-14 Outpatient [facility] [id number] [place] 00:00:00 00:00:00 SHERIN Lombardi Method i st Results This patient has no known results.
[2021-09-10] MEDS ORDERED: TETANUS & DIPHTHERIA TOX,ADULT 0.5 ML VIAL ONE (18:28)
--- NOTE | 2021-09-10 19:40 | RAD REPORT ---
EXAM DESCRIPTION: CT - CTHCSPWOC - 09/10/2021 6:38 pm CLINICAL HISTORY: Trauma, head and neck injury. fall CHI COMPARISON: [id number] dated 01/13/2011 TECHNIQUE: Axial 5 mm thick images of the head were obtained. Axial 2 mm thick images of the cervical spine were obtained with sagittal and coronal reconstruction images generated and reviewed. All CT scans are performed using dose optimization technique as appropriate and may include automated exposure control or mA/KV adjustment according to patient size. 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 The paranasal sinuses and mastoids are clear.The calvarium is intact. CT CERVICAL SPINE WITHOUT CONTRAST: No fracture or subluxation.No prevertebral soft tissues swelling is identified. IMPRESSION: No acute intracranial or cervical spine findings.
--- NOTE | 2021-09-10 19:41 | RAD REPORT ---
EXAM DESCRIPTION: CT - CTFB CLINICAL HISTORY: FACIAL PAIN Trauma facial pain and swelling COMPARISON: No comparisons TECHNIQUE: Axial 2 mm thick images of the face were obtained with sagittal and coronal reconstructio n images. All CT scans are performed using dose optimization technique as appropriate and may include automated exposure control or mA/KV adjustment according to patient size. FINDINGS: No acute facial bone fracture is seen.The mandible is intact. The globes and orbital contents are grossly unremarkable.The paranasal sinuses and mastoids are clear . IMPRESSION: Negative for facial bone fracture.
--- NOTE | 2021-09-10 19:42 | RAD REPORT ---
EXAM DESCRIPTION: RAD - Knee Left 3 View - 09/10/2021 7:08 pm CLINICAL HISTORY: PAIN Trauma, pain COMPARISON: No comparisons FINDINGS: No acute fracture or dislocation is seen. No suprapatellar joint fluid.
--- NOTE | 2021-09-10 19:48 | RAD REPORT ---
EXAM DESCRIPTION: RAD - Hand Left 3 View - 09/10/2021 7:08 pm CLINICAL HISTORY: PAIN COMPARISON: No comparisons FINDINGS: No acute fracture or dislocation seen.
--- NOTE | 2021-09-10 20:14 | EDPHYS ---
Physician Documentation [facility] Name: Amanda Valle Age: 65 yrs Sex: Female : 1955 Arrival Date: 09/10/2021 Time: 17:33 Bed 12 Private MD: Gunnar Brian ED Physician Phillip Tran HPI: 09/10 18:20 This 65 yrs old Female presents to ER via Ambulatory with complaints of Fall kdr Injury, Head Injury-Adult. 18:20 Details of fall: The patient fell from an upright position, while walking. Onset: The kdr symptoms/episode began/occurred suddenly, just prior to arrival. Associated injuries: The patient sustained Patient has a contusion to the left maxillary area as well as the left side of her face. She also has pain to her left lateral neck. Additionally she has pain in her lateral left hand over the 5th MCP joint as well as the left knee anteriorly. Severity of symptoms: At their worst the symptoms were mild, in the emergency department the symptoms are unchanged. The patient has not experienced similar symptoms in the past. The patient has not recently seen a physician. Historical: - Allergies: 17:47 PENICILLINS; vg1 - Home Meds: 17:47 pantoprazole 40 mg Oral TbEC 1 tab 2 times per day [Active]; clopidogrel oral [Active]; vg1 Alprazolam Oral [Active]; Estradiol Oral [Active]; topiramate oral [Active]; Ubrelvy oral [Active]; - PMHx: 17:47 Anxiety; Depression; High Cholesterol; Hypertension; Kidney stones; vg1 - Immunization history:: Client reports receiving the 2nd dose of the Covid vaccine. - Social history:: Smoking status: Patient denies any tobacco usage or history of. ROS: 18:20 Constitutional: Negative for fever, chills, and weight loss, Eyes: Negative for injury, kdr pain, redness, and discharge, ENT: Negative for injury, pain, and discharge, Neck: Negative for injury, pain, and swelling, Cardiovascular: Negative for chest pain, palpitations, and edema, Respiratory: Negative for shortness of breath, cough, wheezing, and pleuritic chest pain, Abdomen/GI: Negative for abdominal pain, nausea, vomiting, diarrhea, and constipation, Back: Negative for injury and pain, : Negative for injury, bleeding, discharge, and swelling, MS/Extremity: Negative for injury and deformity, except for left hand and left knee Neuro: Negative for headache, weakness, numbness, tingling, and seizure activity. Psych: Negative for depression, anxiety, suicide ideation, homicidal ideation, and hallucinations, Allergy/Immunology: Negative for hives, rash, and allergies, Endocrine: Negative for neck swelling, polydipsia, polyuria, polyphagia, and marked weight changes, Hematologic/Lymphatic: Negative for swollen nodes, abnormal bleeding, and unusual bruising. 18:20 Skin: Positive for abrasion(s), Left knee. Patient also has pain to her left face. Exam: 18:20 Constitutional: This is a well developed, well nourished patient who is awake, alert, kdr and in no acute distress. Head/Face: Normocephalic, atraumatic. Eyes: Pupils equal round and reactive to light, extra-ocular motions intact. Lids and lashes normal. Conjunctiva and sclera are non-icteric and not injected. Cornea within normal limits. Periorbital areas with no swelling, redness, or edema. Neck: Trachea midline, no thyromegaly or masses palpated, and no cervical lymphadenopathy. Supple, full range of motion without nuchal rigidity, or vertebral point tenderness. No Meningismus. Chest/axilla: Normal chest wall appearance and motion. Nontender with no deformity. No lesions are appreciated. Cardiovascular: Regular rate and rhythm with a normal S1 and S2. No gallops, murmurs, or rubs. Normal PMI, no JVD. No pulse deficits. Respiratory: Lungs have equal breath sounds bilaterally, clear to auscultation and percussion. No rales, rhonchi or wheezes noted. No increased work of breathing, no retractions or nasal flaring. Abdomen/GI: Soft, non-tender, with normal bowel sounds. No distension or tympany. No guarding or rebound. No evidence of tenderness throughout. Back: No spinal tenderness. No costovertebral tenderness. Full range of motion. 18:20 Head/face: Noted is abrasion(s), contusion, that is superficial, of the left ear, left side of forehead, left temporal area, left yarsani and left zygomatic area, hematoma, swelling, that is mild, tenderness, that is mild, of the left temporal area, left yarsani and left zygomatic area. Vital Signs: 17:43 BP 138 / 80; Pulse 73; Resp 16; Temp 97.7; Pulse Ox 100% ; Weight 53.07 kg; Height 4 vg1 ft. 11 in. (149.86 cm); Pain 7/10; 19:17 BP 131 / 86; Pulse 79; Resp 16; Pulse Ox 98% on R/A; ab2 20:23 BP 126 / 74; Pulse 70; Resp 16; Pulse Ox 100% ; ab2 17:43 Body Mass Index 23.63 (53.07 kg, 149.86 cm) vg1 [place] Coma Score: 18:00 Eye Response: spontaneous(4). Verbal Response: oriented(5). Motor Response: obeys ab2 commands(6). Total: 15. Trauma Score (Adult): 18:00 Eye Response: spontaneous(1); Verbal Response: oriented(1); Motor Response: obeys ab2 commands(2); Systolic BP: > 89 mm Hg(4); Respiratory Rate: 10 to 29 per min(4); Sarah Score: 15; Trauma Score: 12 MDM: 18:20 Data reviewed: vital signs, nurses notes, lab test result(s), radiologic studies. kdr Counseling: I had a detailed discussion with the patient and/or guardian regarding: the historical points, exam findings, and any diagnostic results supporting the discharge/admit diagnosis, radiology results, the need for outpatient follow up. 19:24 Patient medically screened. [facility] 09/10 18:20 Order name: CT Facial Bones W/O Con; Complete Time: 19:42 [facility] 09/10 18:20 Order name: Hand Left 3 View XRAY; Complete Time: 19:58 kdr 09/10 18:20 Order name: Knee Left 3 View XRAY; Complete Time: 19:58 [facility] 09/10 18:22 Order name: Head C Spine Mpr Wo Con; Complete Time: 19:42 [facility] 09/10 18:20 Order name: Misc. 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 Exp: ab2 12/26/2022. Lot #: [id number]. } Route: IM; Site: right deltoid; Disposition Summary: 09/10/21 20:13 Discharge Ordered Location: Home jm Condition: Stable jm Diagnosis - Left Lower Leg Abrasion jmm - Head Injury jm - Facial Contusion jm Followup: [facility] - With: Gunnar Brian MD - When: 2 - 3 days - Reason: Recheck today's complaints, Continuance of care, Re-evaluation by your physician Discharge Instructions: - Discharge Summary Sheet jmm - Abrasion jmm - Head Injury, Adult jm Forms: - Medication Reconciliation Form [facility] - Thank You Letter [facility] - Antibiotic Education [facility] - Prescription Opioid Use [facility] Prescriptions: - orphenadrine citrate 100 mg Oral Tablet Sustained Release - take 1 tablet by ORAL route 2 times per day As needed; 20 tablet; Refills: 0, jm Product Selection Permitted Signatures: Dispatcher [employer] EDMS Phillip Tran MD MD kdr Mickail, Joel, PA PA jmm Garcia, Victoria, RN RN vg1 Gsu Mckeon2 Corrections: (The following items were deleted from the chart) 18:22 18:20 Head Brain Wo Cont+CT.RAD.BRZ ordered. EDMS EDMS 18:25 18:20 C Spine Wo Con+CT.RAD.BRZ ordered. EDMS EDMS
--- NOTE | 2021-09-10 20:14 | ER ---
Nurse's Notes [facility] Name: Amanda Valle Age: 65 yrs Sex: Female : 1955 Arrival Date: 09/10/2021 Time: 17:33 Bed 12 Private MD: Gunnar Brian Diagnosis: Left Lower Leg Abrasion;Head Injury;Facial Contusion Presentation: 09/10 17:43 Chief complaint: Patient states: pt was at home outside when slipped and fell onto vg1 concrete; states hit Left side of cheek and c/o neck, Left hand, and Left knee pain. States h/a; denies NV or LOC. Incident occurred about 30 minutes ago. Coronavirus screen: Vaccine status: Patient reports receiving the 2nd dose of the covid vaccine. Client denies travel out of the [place] in the last 14 days. Ebola Screen: Patient negative for fever greater than or equal to 101.5 degrees Fahrenheit, and additional compatible Ebola Virus Disease symptoms. Initial Sepsis Screen: Does the patient meet any 2 criteria? No. Patient's initial sepsis screen is negative. Does the patient have a suspected source of infection? No. Patient's initial sepsis screen is negative. Risk Assessment: Do you want to hurt yourself or someone else? Patient reports no desire to harm self or others. Onset of symptoms was September 10, 2021. 17:43 Method Of Arrival: Ambulatory vg1 17:43 Acuity: ANDER 3 vg1 18:01 Care prior to arrival: Bleeding of injury controlled. Injury dressed. Mechanism of ab2 Injury: Fall from standing position. Trauma event details: Injury occurred in the [facility]. Triage Assessment: 17:47 General: Appears uncomfortable, Behavior is calm, cooperative. Pain: Complains of pain vg1 in neck, Left hand and left knee. Neuro: Level of Consciousness is awake, alert, obeys commands, Oriented to person, place, time, situation. Trauma Activation: Not Applicable Physician: ED Physician; Name: ; Notified At: ; Arrived At: Physician: General Surgeon; Name: ; Notified At: ; Arrived At: Physician: Radiology; Name: ; Notified At: ; Arrived At: Physician: Respiratory; Name: ; Notified At: ; Arrived At: Physician: Lab; Name: ; Notified At: ; Arrived At: Historical: - Allergies: 17:47 PENICILLINS; vg1 - Home Meds: 17:47 pantoprazole 40 mg Oral TbEC 1 tab 2 times per day [Active]; clopidogrel oral [Active]; vg1 Alprazolam Oral [Active]; Estradiol Oral [Active]; topiramate oral [Active]; Ubrelvy oral [Active]; - PMHx: 17:47 Anxiety; Depression; High Cholesterol; Hypertension; Kidney stones; vg1 - Immunization history:: Client reports receiving the 2nd dose of the Covid vaccine. - Social history:: Smoking status: Patient denies any tobacco usage or history of. Screenin:54 Abuse screen: Denies threats or abuse. Denies injuries from another. Nutritional ab2 screening: No deficits noted. Tuberculosis screening: No symptoms or risk factors identified. Fall Risk None identified. Primary Survey: 17:59 NO uncontrolled hemorrhage observed. Breathing/Chest: Respiratory pattern: regular, ab2 Respiratory effort: spontaneous, unlabored, Breath sounds: clear, bilaterally. Chest inspection: symmetrical rise and fall of the chest. Circulation: Pulses: palpable right radial artery and left radial artery. Disability Alert. Exposure/Environment: There is no evidence of uncontrolled external bleeding. Assessment: 17:57 General: Appears in no apparent distress. comfortable, Behavior is calm, cooperative, ab2 appropriate for age. Pain: Complains of pain in left knee Pain currently is 4 out of 10 on a pain scale. Neuro: Level of Consciousness is awake, alert, obeys commands, Oriented to person, place, time, situation, Appropriate for age Rib Stiffener And Heel Dipper are equal bilaterally Moves all extremities. Full function Gait is steady, Speech is normal, Facial symmetry appears normal. Cardiovascular: Reports None Denies chest pain, shortness of breath, Heart tones S1 S2 present Patient's skin is warm and dry. Chest pain is denied. Respiratory: No deficits noted. Airway is patent Breath sounds are clear bilaterally. GI: No signs and/or symptoms were reported involving the gastrointestinal system. Abdomen is round non-distended, Bowel sounds present X 4 quads. : No deficits noted. No signs and/or symptoms were reported regarding the genitourinary system. EENT: No deficits noted. No signs and/or symptoms were reported regarding the EENT system. Derm: Wound noted left knee. Musculoskeletal: Reports pain in left knee Pain in left cheeck, left wrist and left knee. Injury Description: fell while walking in water. Vital Signs: 17:43 BP 138 / 80; Pulse 73; Resp 16; Temp 97.7; Pulse Ox 100% ; Weight 53.07 kg; Height 4 vg1 ft. 11 in. (149.86 cm); Pain 7/10; 19:17 BP 131 / 86; Pulse 79; Resp 16; Pulse Ox 98% on R/A; ab2 20:23 BP 126 / 74; Pulse 70; Resp 16; Pulse Ox 100% ; ab2 17:43 Body Mass Index 23.63 (53.07 kg, 149.86 cm) vg1 Asrah Coma Score: 18:00 Eye Response: spontaneous(4). Verbal Response: oriented(5). Motor Response: obeys ab2 commands(6). Total: 15. Trauma Score (Adult): 18:00 Eye Response: spontaneous(1); Verbal Response: oriented(1); Motor Response: obeys ab2 commands(2); Systolic BP: > 89 mm Hg(4); Respiratory Rate: 10 to 29 per min(4); Madison Score: 15; Trauma Score: 12 ED Course: 17:33 Patient arrived in ED. mr 17:33 Gunnar Brian MD is Private Physician. mr 17:36 Phillip Tran MD is Attending Physician. kdr 17:47 Triage completed. vg1 17:47 Arm band placed on. vg1 17:54 Gus Mckeon is Primary Nurse. ab2 18:01 Patient has correct armband on for positive identification. Bed in low position. Call ab2 light in reach. Side rails up X2. 18:01 Thermoregulation: warm blanket given to patient. ab2 18:02 No provider procedures requiring assistance completed. ab2 18:37 CT Facial Bones W/O Con In Process Unspecified. EDMS 18:37 Head C Spine Mpr Wo Con In Process Unspecified. EDMS 18:55 Praveen Salvador PA is PHCP. jmm 19:08 Hand Left 3 View XRAY In Process Unspecified. EDMS 19:08 Knee Left 3 View XRAY In Process Unspecified. EDMS 20:12 Gunnar Brian MD is Referral Physician. jmm 20:23 Wound care: to abrasion, located on left knee was cleaned with soap and water, dressed ab2 with Neosporin, band aid. 20:24 Patient did not have IV access during this emergency room visit. ab2 Administered Medications: 18:29 Drug: Tetanus-Diphtheria Toxoid Adult 0.5 ml {Director Of Infection Control: [employer]. Exp: ab2 12/26/2022. Lot #: [id number]. } Route: IM; Site: right deltoid; Outcome: 20:13 Discharge ordered by . nataliia 20:24 Discharged to home ambulatory. ab2 20:24 Condition: good 20:24 Discharge instructions given to 20:24 Discharge instructions given to patient, family, Instructed on discharge instructions, Demonstrated understanding of instructions, follow-up care, wound care, Prescriptions given X 1. 20:25 Patient left the ED. ab2 Signatures: Dispatcher [employer] EDMS Phillip Tran MD MD kdr Mickail, Joel, PA PA jmm Rivera, Mary mr Garcia, Victoria, RN RN vg1 Gus Mckeon ab2
[2021-09-10 20:29] VITALS: TEMP 97.7
[2021-09-10 20:31] VITALS: BP 126/74; O2SAT 100
== END 2021-09-10 20:25 | disposition home or self-care (01) ==
LOC: ER 17:29
DX: S00.83XA Contusion of other part of head, initial encounter (principal); S80.812A Abrasion, left lower leg, initial encounter; W18.30XA Fall on same level, unspecified, initial encounter; Y93.01 Activity, walking, marching and hiking; Z23 Encounter for immunization; Z88.0 Allergy status to penicillin; F41.8 Other specified anxiety disorders; I10 Essential (primary) hypertension
CPT/HCPCS: 70450; 70486; 72125; 76377; 90471; 90714; 99284

== ENCOUNTER 2023-07-17 03:39 | Emergency (ER) | payer OTHER ==
[2023-07-17 04:26] LABS: Hematocrit 40.6 % (36.0-45.0); Lymphocytes % 26.7 % (15.3-44.8); MCV 95.8 fL (80-100); MPV 7.9 fL (7.6-11.3); Platelets 259 thou/uL (152-406); RBC Red Blood Cell Count 4.24 M/uL (3.86-4.86)
[2023-07-17] MEDS ORDERED: MORPHINE 4 MG/ML SYR ONE (04:28)
[2023-07-17] MEDS ORDERED: ONDANSETRON 4 MG/2 ML VIAL ONE (04:28)
[2023-07-17] MEDS ORDERED: KETOROLAC 30 MG/ML INJ ONE (04:28)
[2023-07-17] MEDS ORDERED: NA CHLORIDE 0.9% 1,000 ML ONE (04:29)
[2023-07-17 04:44] LABS: Calcium Oxalate Crystals- Ur Few /HPF (None Seen); Specific Gravity 1.018 (1.005-1.030); Urine Bacteria <20 /HPF (<20); Urine Bilirubin NEGATIVE (Negative); Urine Blood 3+ (Negative); Urine Clarity Turbid (Clear); Urine Color Colorless (Yellow); Urine Glucose NEGATIVE (Negative); Urine Mucus Slight /HPF (None Seen); Urine Protein NEGATIVE (Negative); Urine RBC >50 /HPF (None Seen); Urine Urobilinogen Normal (Normal); Urine pH 5.5 (5.0-7.0)
[2023-07-17 04:45] LABS: Albumin 3.5 g/dL (3.4-5.0); Bilirubin Total 0.3 mg/dL (0.2-1.0); Potassium 3.3 mEq/L (3.5-5.1); Protein, Total 7.3 g/dL (6.4-8.2)
--- NOTE | 2023-07-17 05:05 | ER ---
Nurse's Notes [facility] Name: Amanda Valle Age: 67 yrs Sex: Female : 1955 Arrival Date: 07/17/2023 Time: 03:39 Bed 7 Private MD: Gunnar Brian Diagnosis: Calculus of ureter Presentation: 07/17 03:50 Chief complaint: Patient states: right flank pain of 7 that radiates to right lower pf1 abdomen,onset 1 week ago, resolved then started again at 0140 this AM. Patient stated followed up with Dr. Brian on Tuesday and started taking Cipro on Tuesday for UTI. 03:50 Coronavirus screen: Vaccine status: Client denies travel out of the [place] in the last 14 pf1 days. At this time, the client does not indicate any symptoms associated with coronavirus-19. Ebola Screen: Patient negative for fever greater than or equal to 101.5 degrees Fahrenheit, and additional compatible Ebola Virus Disease symptoms. Initial Sepsis Screen: Does the patient meet any 2 criteria? No. Patient's initial sepsis screen is negative. Does the patient have a suspected source of infection? No. Patient's initial sepsis screen is negative. Risk Assessment: Do you want to hurt yourself or someone else? Patient reports no desire to harm self or others. 03:50 Method Of Arrival: Ambulatory pf1 03:50 Acuity: ANDER 3 pf1 04:11 Onset of symptoms is unknown. km8 Historical: - Allergies: 04:06 PENICILLINS; pf1 - PMHx: 04:06 Anxiety; Depression; High Cholesterol; Hypertension; Kidney stones; pf1 04:06 TIA; Migraine; acid reflux; pf1 - PSHx: 04:06 Total abdominal hysterectomy; bilateral carpal tunnel; Tonsillectomy; right foot; pf1 bladder suspension; Hemorrhoidectomy; - Immunization history:: Adult Immunizations up to date, 5 doses of Covid vaccinations Last tetanus immunization: > 10 years ago Flu vaccine is up to date. - Social history:: Smoking status: Patient denies any tobacco usage or history of. Patient uses alcohol, but reports only rare drinking. Patient/guardian denies using street drugs. Screenin:07 [facility] ED Fall Risk Assessment (Adult) History of falling in the last 3 months, km8 including since admission No falls in past 3 months (0 pts) Confusion or Disorientation No (0 pts) Intoxicated or Sedated No (0 pts) Impaired Gait No (0 pts) Mobility Assist Device Used No (0 pt) Altered Elimination No (0 pt) Score/Fall Risk Level 0 - 2 = Low Risk Oriented to surroundings, Maintained a safe environment, Educated pt \T\ family on fall prevention, incl call for assistance when getting out of bed, Assessed \T\ reinforced patient's understanding of fall precautions. Abuse screen: Denies threats or abuse. Denies injuries from another. Nutritional screening: No deficits noted. Tuberculosis screening: No symptoms or risk factors identified. Assessment: 04:07 General: Appears in no apparent distress. uncomfortable, Behavior is calm, cooperative, km8 appropriate for age. Pain: Complains of pain in right mid back Pain radiates to right lower quadrant. Neuro: Level of Consciousness is awake, alert, obeys commands, Oriented to person, place, time, situation. Cardiovascular: Denies chest pain, shortness of breath, Capillary refill < 3 seconds Patient's skin is warm and dry. Respiratory: Airway is patent Respiratory effort is even, unlabored, Respiratory pattern is regular, symmetrical. GI: Abdomen is flat, non-distended, Bowel sounds present X 4 quads. Abdomen is tender to palpation in right lower quadrant. : Denies burning with urination. EENT: Derm: No signs and/or symptoms reported regarding the dermatologic system. Skin is intact, is healthy with good turgor, Skin is dry, Skin is pink, warm \T\ dry. normal, Skin temperature is warm. Musculoskeletal: No signs and/or symptoms reported regarding the musculoskeletal system. Circulation, motion, and sensation intact. Range of motion: intact in all extremities. 05:01 Reassessment: Patient appears in no apparent distress at this time. Patient and/or km8 family updated on plan of care and expected duration. Pain level reassessed. Patient is alert, oriented x 3, equal unlabored respirations, skin warm/dry/pink. Patient states feeling better. Vital Signs: 03:50 BP 126 / 103; Pulse 62; Resp 16; Temp 97.1; Pulse Ox 100% on R/A; Weight 56.7 kg; pf1 Height 4 ft. 11 in. ; Pain 7/10; 04:30 BP 150 / 58; Pulse 65; Resp 16; Pulse Ox 100% on R/A; km8 04:54 Pain 3/10; km8 03:50 Body Mass Index 25.25 (56.70 kg, 149.86 cm) pf1 03:50 Pain Scale: Adult pf1 04:54 Pain Scale: Adult km8 Sarah Coma Score: 04:07 Eye Response: spontaneous(4). Motor Response: obeys commands(6). Verbal Response: km8 oriented(5). Total: 15. ED Course: 03:45 Patient arrived in ED. gm2 03:45 Gunnar Brian MD is Private Physician. gm2 03:46 Joshua Donato MD is Attending Physician. rt 04:06 Triage completed. pf1 04:07 Patient has correct armband on for positive identification. Placed in gown. Bed in low km8 position. Call light in reach. Side rails up X 1. Pulse ox on. NIBP on. Door closed. Visitors limited. Lights dimmed. Warm blanket given. 04:07 Inserted saline lock: 20 gauge in right antecubital area, using aseptic technique. km8 Blood collected. Patient maintains SpO2 saturation greater than 95% on room air. 04:11 Arm band placed on right wrist. km8 04:11 No provider procedures requiring assistance completed. km8 04:18 CBC with Diff Sent. km8 04:18 CMP Sent. km8 04:18 Lipase Sent. km8 04:18 Urinalysis w/ reflexes Sent. km8 04:44 CT Abd/Pelvis - Without Contrast In Process Unspecified. EDMS 05:04 Jagdish Nam MD is Referral Physician. rt 05:08 Provided Education on: d/c teaching. km8 05:15 IV discontinued, intact, bleeding controlled, No redness/swelling at site. Pressure km8 dressing applied. Administered Medications: 04:15 Drug: NS 0.9% IV 1000 ml IV at 1 bolus Per protocol; 1000 mL bolus Route: IV; Rate: 1 ha1 bolus; Site: right antecubital; 05:07 Follow up: IV Status: Completed infusion; IV Intake: 1000ml km8 04:15 Drug: Ondansetron IVP 4 mg IVP once; over 2 minutes Route: IVP; Site: right antecubital;ha1 05:07 Follow up: Response: No adverse reaction km8 04:17 Drug: TORadol - Ketorolac IVP 15 mg IVP once Route: IVP; Site: right antecubital; ha1 05:07 Follow up: Response: No adverse reaction; Pain is decreased km8 04:19 Drug: morphine IVP or IV 4 mg IVP once over 4 mins Route: IVP; Infused Over: 4 mins; ha1 Site: right antecubital; 05:07 Follow up: Response: No adverse reaction; Pain is decreased km8 Medication: 04:07 VIS not applicable for this client. km8 Intake: 05:07 IV: 1000ml; Total: 1000ml. km8 Outcome: 05:04 Discharge ordered by MD. rt 05:19 Discharged to home via wheelchair, with significant other, km 05:19 Condition: good 05:19 Discharge instructions given to patient, significant other, Instructed on discharge instructions, follow up and referral plans. medication usage, Demonstrated understanding of instructions, follow-up care, medications, Prescriptions given X 3, 05:19 Patient left the ED. km8 Signatures: Dispatcher [employer] EDMS Rocio Garcia RN RN ha1 Joshua Donato MD MD rt Francine Resendiz RN RN pf1 Rbuy Grijalva 2 Lauren Kwon RN RN km8 Corrections: (The following items were deleted from the chart) 04:10 04:07 Pain: Complains of pain in right mid back Pain radiates to left lower quadrant km8km8 04:11 04:07 GI: Abdomen is flat, non-distended, Bowel sounds present X 4 quads. Abdomen is km8 tender to palpation in left lower quadrant km8 04:14 04:06 PMHx: TIA (Kidney stones); pf1 pf1 05:19 05:19 Discharge instructions given to patient, significant other, Instructed on km8 discharge instructions, follow up and referral plans. medication usage, Demonstrated understanding of instructions, follow-up care, medications, Prescriptions given X 2, km8
--- NOTE | 2023-07-17 05:05 | EDPHYS ---
Physician Documentation [facility] Name: Amanda Valle Age: 67 yrs Sex: Female : 1955 Arrival Date: 07/17/2023 Time: 03:39 Bed 7 Private MD: Gunnar Brian ED Physician Joshua Donato HPI: 07/17 04:09 This 67 yrs old Female presents to ER via Ambulatory with complaints of Low rt Back Pain, Abdominal Pain. 04:09 Patient presents to the ED with an acute onset of a sharp right flank pain rating to rt the suprapubic region starting at about 2 AM this morning. She has had prior episodes of kidney stone, states that this is somewhat different than that. Did have hematuria a little over a week ago, none currently. Denies other acute complaints, symptoms are moderate severity, no other aggravating alleviating factors.. Historical: - Allergies: 04:06 PENICILLINS; pf1 - PMHx: 04:06 Anxiety; Depression; High Cholesterol; Hypertension; Kidney stones; pf1 04:06 TIA; Migraine; acid reflux; pf1 - PSHx: 04:06 Total abdominal hysterectomy; bilateral carpal tunnel; Tonsillectomy; right foot; pf1 bladder suspension; Hemorrhoidectomy; - Immunization history:: Adult Immunizations up to date, 5 doses of Covid vaccinations Last tetanus immunization: > 10 years ago Flu vaccine is up to date. - Social history:: Smoking status: Patient denies any tobacco usage or history of. Patient uses alcohol, but reports only rare drinking. Patient/guardian denies using street drugs. ROS: 04:09 Constitutional: Negative for fever, chills, and weight loss, Cardiovascular: Negative rt for chest pain, palpitations, and edema, Respiratory: Negative for shortness of breath, cough, wheezing, and pleuritic chest pain, MS/Extremity: Negative for injury and deformity, Skin: Negative for injury, rash, and discoloration, Neuro: Negative for headache, weakness, numbness, tingling, and seizure, Psych: Negative for depression, anxiety, suicide ideation, homicidal ideation, and hallucinations, 04:09 Abdomen/GI: Positive for abdominal pain, Negative for nausea and vomiting, 04:09 Back: Positive for flank pain, on the right, Negative for injury or acute deformity, Exam: 04:09 Constitutional: This is a well developed, well nourished patient who is awake, alert, rt and in no acute distress. Head/Face: Normocephalic, atraumatic. Chest/axilla: Normal chest wall appearance and motion. Nontender with no deformity. No lesions are appreciated. Cardiovascular: Regular rate and rhythm with a normal S1 and S2. No gallops, murmurs, or rubs. Normal PMI, no JVD. No pulse deficits. Respiratory: Lungs have equal breath sounds bilaterally, clear to auscultation and percussion. No rales, rhonchi or wheezes noted. No increased work of breathing, no retractions or nasal flaring. Skin: Warm, dry with normal turgor. Normal color with no rashes, no lesions, and no evidence of cellulitis. MS/ Extremity: Pulses equal, no cyanosis. Neurovascular intact. Full, normal range of motion. Neuro: Awake and alert, GCS 15, oriented to person, place, time, and situation. Cranial nerves II-XII grossly intact. Motor strength 5/5 in all extremities. Sensory grossly intact. Cerebellar exam normal. Normal gait. Psych: Awake, alert, with orientation to person, place and time. Behavior, mood, and affect are within normal limits. 04:09 Abdomen/GI: Mild tenderness to the suprapubic region without guarding, rebound, distention, 04:09 Back: Right CVAT, no midline tenderness, Vital Signs: 03:50 BP 126 / 103; Pulse 62; Resp 16; Temp 97.1; Pulse Ox 100% on R/A; Weight 56.7 kg; pf1 Height 4 ft. 11 in. ; Pain 7/10; 04:30 BP 150 / 58; Pulse 65; Resp 16; Pulse Ox 100% on R/A; km8 04:54 Pain 3/10; km8 03:50 Body Mass Index 25.25 (56.70 kg, 149.86 cm) pf1 03:50 Pain Scale: Adult pf1 04:54 Pain Scale: Adult km8 Sarah Coma Score: 04:07 Eye Response: spontaneous(4). Motor Response: obeys commands(6). Verbal Response: km8 oriented(5). Total: 15. MDM: 04:00 Patient medically screened. rt 05:07 Differential diagnosis: Kidney stone, pyelonephritis. Data reviewed: vital signs, rt nurses notes, lab test result(s), radiologic studies. I considered the following discharge prescriptions or medication management in the emergency department Medications were administered in the Emergency Department. See MAR. Independent interpretation of the following test(s) in the Emergency Department CT Scan: My interpretation is Ureteral stone seen on interpretation of CT scan images. Care significantly affected by the following chronic conditions: Hypertension. Counseling: I had a detailed discussion with the patient and/or guardian regarding the historical points, exam findings, and any diagnostic results supporting the discharge/admit diagnosis, lab results, radiology results, the need for outpatient follow up, to return to the emergency department if symptoms worsen or persist or if there are any questions or concerns that arise at home. Response to treatment: the patient's symptoms have markedly improved after treatment. 07/17 04:06 Order name: CBC with Diff; Complete Time: 04:46 rt 07/17 04:06 Order name: CMP; Complete Time: 04:46 rt 07/17 04:06 Order name: Lipase; Complete Time: 04:46 rt 07/17 04:06 Order name: Urinalysis w/ reflexes; Complete Time: 04:46 rt 07/17 04:06 Order name: CT Abd/Pelvis - Without Contrast rt 07/17 04:06 Order name: IV Saline Lock; Complete Time: 04:11 rt 07/17 04:06 Order name: Labs collected and sent; Complete Time: 04:11 rt Administered Medications: 04:15 Drug: NS 0.9% IV 1000 ml IV at 1 bolus Per protocol; 1000 mL bolus Route: IV; Rate: 1 ha1 bolus; Site: right antecubital; 05:07 Follow up: IV Status: Completed infusion; IV Intake: 1000ml 04:15 Drug: Ondansetron IVP 4 mg IVP once; over 2 minutes Route: IVP; Site: right antecubital;ha1 05:07 Follow up: Response: No adverse reaction 8 04:17 Drug: TORadol - Ketorolac IVP 15 mg IVP once Route: IVP; Site: right antecubital; ha1 05:07 Follow up: Response: No adverse reaction; Pain is decreased 8 04:19 Drug: morphine IVP or IV 4 mg IVP once over 4 mins Route: IVP; Infused Over: 4 mins; ha1 Site: right antecubital; 05:07 Follow up: Response: No adverse reaction; Pain is decreased km8 Disposition Summary: 07/17/23 05:04 Discharge Ordered Notes: Location: Home rt Problem: new rt Symptoms: have improved rt Condition: Stable rt Diagnosis - Calculus of ureter rt Followup: rt - With: Jagdish Nam MD - When: 7 - 10 days - Reason: Discharge Instructions: - Discharge Summary Sheet rt - Kidney Stones rt Forms: - Medication Reconciliation Form rt - Thank You Letter rt - Antibiotic Education rt - Prescription Opioid Use rt - Patient Portal Instructions rt - Leadership Thank You Letter rt Prescriptions: - Flomax 0.4 mg Oral capsule - take 1 capsule ORAL route every 24 hours; 14 capsule; Refills: 0, Product rt Selection Permitted - acetaminophen-codeine 300-30 mg Oral tablet - take 1 tablet ORAL route every 6 hours as needed for pain control; 18 tablet; rt Refills: 0, Product Selection Permitted - ondansetron 4 mg Oral Tablet,disintegrating - take 1 tablet ORAL route every 6 hours as needed for nausea; 18 tablet; rt Refills: 0, Product Selection Permitted Signatures: Dispatcher [employer] Rocio Saldivar RN RN ha1 Joshua Donato MD MD rt Francine Resendiz RN RN pf1 Lauren Kwon RN km8 Corrections: (The following items were deleted from the chart) 04:14 04:06 PMHx: TIA (Kidney stones); pf1 pf1
[2023-07-17 05:28] VITALS: BP 150/58; TEMP 97.1; O2SAT 100
--- NOTE | 2023-07-18 15:20 | RAD REPORT ---
EXAM DESCRIPTION: Abdomen Pelvis Wo Contrast RadLex: CT ABDOMEN PELVIS WITHOUT IV CONTRAST CLINICAL HISTORY: 67 years Female; ABD PAIN; NO CONTRAST Bed Name: 7 TECHNIQUE: CT of the abdomen and pelvis without contrast. All CT scans at this facility use dose modulation, iterative reconstruction, and/or weight based dosi ng when appropriate to reduce radiation dose to as low as reasonably achievable. COMPARISON: None. FINDINGS: Lower thorax: Lung bases are clear Abdomen: Stomach: Within normal limits Liver: No focal lesions. No intrahepatic ductal distention. Gallbladder: Surgically absent. Pancreas: Within normal limits Spleen: Within normal limits Right kidney: Multiple renal stones. Moderate hydronephrosis. Distal ureteral stone measuring 4 mm. S tranding surrounding the kidney and ureter. Left kidney: Multiple renal stones. No hydronephrosis. No ureteral calculi. Adrenal glands: Within normal limits Vascular structures: Atherosclerosis of the abdominal aorta and major branches. Lymph nodes: No lymphadenopathy by size criteria Pelvis: Small bowel: No significant distention. Appendix: Not visualized. No pericecal inflammatory changes. Colon: No distention or acute pericolonic edema. Colonic atherosclerosis. Peritoneum: No free intraperitoneal fluid or air. Bones: No acute bone findings. Bladder: Unremarkable. Reproductive organs: No acute findings. Note that evaluation of the bowel and solid organs is somewhat limited due to lack of intravenous and oral contrast. IMPRESSION: 1. Right distal ureteral stone measuring 4 mm. Moderate right hydronephrosis. Extensive stranding surrounding the right kidney ureter. 2. Bilateral nephrolithiasis. 3. Colonic diverticulosis. Electronically signed by: Lexis Blackwell MD 07/17/2023 04:51 AM CODING SUPPORT SPECIALIST Due to temporary technical issues with the PACS/Fluency reporting system, reports are being signed by the in house radiologist without review as a courtesy to ensure prompt reporting. The interpreting r adiologist is fully responsible for the content of the report.
== END 2023-07-17 05:19 | disposition home or self-care (01) ==
LOC: ER 03:39
DX: N20.1 Calculus of ureter (principal); Z87.442 Personal history of urinary calculi; I10 Essential (primary) hypertension; Z88.0 Allergy status to penicillin
CPT/HCPCS: 96361; 85025; 81001; 36415; 83690; 80053; 74176; 96375; 96374; 99285; J2405; J7030

== ENCOUNTER → 2023-08-06 | Emergency (ER) | payer OTHER ==
[~2023-08-06] MED LIST: CEFTRIAXONE 1000 MG/VIAL ONE; CIPROFLOXACIN HCL 500 MG TAB ONE; FAMOTIDINE 20 MG/2 ML VIAL IV ONE; MORPHINE 2 MG/ML SYR ONE; NA CHLORIDE 0.9% 2,000 ML ONE; NA CHLORIDE 0.9% 50 ML ONE; ONDANSETRON 4 MG/2 ML VIAL ONE; TAMSULOSIN 0.4 MG SR CAP ONE
[2023-08-06 05:53] LABS: Specific Gravity 1.011 (1.005-1.030); Urine Bacteria None Seen /HPF (<20); Urine Bilirubin NEGATIVE (Negative); Urine Blood 2+ (Negative); Urine Clarity Clear (Clear); Urine Color Light-Yellow (Yellow); Urine Glucose NEGATIVE (Negative); Urine Mucus Slight /HPF (None Seen); Urine Protein NEGATIVE (Negative); Urine Urobilinogen Normal (Normal)
[2023-08-06 06:42] LABS: Albumin 3.4 g/dL (3.4-5.0); Bilirubin Direct 0.1 mg/dL (0-0.2); Bilirubin Indirect, Calculated 0.2 mg/dL (0.2-0.8); Bilirubin Total 0.3 mg/dL (0.2-1.0); Magnesium 1.9 mg/dL (1.6-2.4); Potassium 3.5 mEq/L (3.5-5.1); Protein, Total 6.9 g/dL (6.4-8.2); Troponin High Sensitivity 5.5 pg/mL (<58.9)
[2023-08-06 06:43] LABS: Absolute Lymphocytes (CBC) 2.3 K/uL (0.7-4.9); Hematocrit 38.8 % (36.0-45.0); Lymphocytes % 24.9 % (15.3-44.8); MCV 96.5 fL (80-100); MPV 7.9 fL (7.6-11.3); Platelets 290 thou/uL (152-406); RBC Red Blood Cell Count 4.02 M/uL (3.86-4.86)
[2023-08-06 06:49] LABS: Protime INR 1.03
--- NOTE | 2023-08-06 07:22 | EDPHYS ---
Physician Documentation [facility] Name: Amanda Valle Age: 67 yrs Sex: Female : 1955 Arrival Date: 08/06/2023 Time: 03:34 Bed 4 Private MD: GAB Physician Kartik Herr HPI: 08/06 04:40 This 67 yrs old Female presents to ER via Ambulatory with complaints of jovon Abdominal Pain, Nausea. 04:40 The patient presents to the emergency department with nausea, vomiting, that is jovon intermittent. Onset: The symptoms/episode began/occurred 1 day(s) ago. Possible causes: unknown. The symptoms are aggravated by movement. Associated signs and symptoms: Pertinent positives: abdominal pain, dysuria, nausea, vomiting. Severity of symptoms: At their worst the symptoms were moderate in the emergency department the symptoms are unchanged. The patient has experienced similar episodes in the past, a few times. Historical: - Allergies: 04:00 PENICILLINS; pf1 - PMHx: 04:00 acid reflux; Anxiety; Depression; High Cholesterol; Hypertension; Kidney stones; TIA; pf1 Migraine; - PSHx: 04:00 bilateral carpal tunnel; bladder suspension; Hemorrhoidectomy; right foot; Total pf1 abdominal hysterectomy; Tonsillectomy; - Immunization history:: Adult Immunizations up to date, 5 doses of pfizer and Moderna Last tetanus immunization: > 10 years ago Flu vaccine is up to date. - Social history:: Smoking status: Patient denies any tobacco usage or history of. Patient/guardian denies using alcohol, street drugs. ROS: 04:41 Constitutional: Negative for fever, chills, and weight loss, Eyes: Negative for injury, jovon pain, redness, and discharge, ENT: Negative for injury, pain, and discharge, Neck: Negative for injury, pain, and swelling, Cardiovascular: Negative for chest pain, palpitations, and edema, Respiratory: Negative for shortness of breath, cough, wheezing, and pleuritic chest pain, : Negative for injury, bleeding, discharge, and swelling, MS/Extremity: Negative for injury and deformity, Skin: Negative for injury, rash, and discoloration, Neuro: Negative for headache, weakness, numbness, tingling, and seizure, Psych: Negative for depression, anxiety, suicide ideation, homicidal ideation, and hallucinations, Allergy/Immunology: Negative for hives, rash, and allergies, Endocrine: Negative for neck swelling, polydipsia, polyuria, polyphagia, and marked weight changes, Hematologic/Lymphatic: Negative for swollen nodes, abnormal bleeding, and unusual bruising, 04:41 Abdomen/GI: Positive for abdominal pain, nausea and vomiting, of the posterior aspect of right lateral abdomen, anterior aspect of right lateral abdomen, right upper quadrant and right lower quadrant, Exam: 04:41 Constitutional: This is a well developed, well nourished patient who is awake, alert, jovon and in no acute distress. Head/Face: Normocephalic, atraumatic. Eyes: Pupils equal round and reactive to light, extra-ocular motions intact. Lids and lashes normal. Conjunctiva and sclera are non-icteric and not injected. Cornea within normal limits. Periorbital areas with no swelling, redness, or edema. ENT: Nares patent. No nasal discharge, no septal abnormalities noted. Tympanic membranes are normal and external auditory canals are clear. Oropharynx with no redness, swelling, or masses, exudates, or evidence of obstruction, uvula midline. Mucous membranes moist. Neck: Trachea midline, no thyromegaly or masses palpated, and no cervical lymphadenopathy. Supple, full range of motion without nuchal rigidity, or vertebral point tenderness. No Meningismus. Chest/axilla: Normal chest wall appearance and motion. Nontender with no deformity. No lesions are appreciated. Cardiovascular: Regular rate and rhythm with a normal S1 and S2. No gallops, murmurs, or rubs. Normal PMI, no JVD. No pulse deficits. Respiratory: Lungs have equal breath sounds bilaterally, clear to auscultation and percussion. No rales, rhonchi or wheezes noted. No increased work of breathing, no retractions or nasal flaring. Back: No spinal tenderness. No costovertebral tenderness. Full range of motion. Female : Normal external genitalia. Skin: Warm, dry with normal turgor. Normal color with no rashes, no lesions, and no evidence of cellulitis. MS/ Extremity: Pulses equal, no cyanosis. Neurovascular intact. Full, normal range of motion. Neuro: Awake and alert, GCS 15, oriented to person, place, time, and situation. Cranial nerves II-XII grossly intact. Motor strength 5/5 in all extremities. Sensory grossly intact. Cerebellar exam normal. Normal gait. Psych: Awake, alert, with orientation to person, place and time. Behavior, mood, and affect are within normal limits. 04:41 Abdomen/GI: Inspection: abdomen appears normal, Bowel sounds: normal, Palpation: mild abdominal tenderness, in the posterior aspect of right lateral abdomen, anterior aspect of right lateral abdomen and right lower quadrant, Liver: no appreciated palpable abnormalities, Hernia: not appreciated, 07:28 ECG was reviewed by the Attending Physician. [facility] Vital Signs: 03:54 BP 168 / 79; Pulse 62; Resp 16; Temp 97.6; Pulse Ox 99% ; Weight 56.25 kg; Height 4 ft. pf1 10 in. ; Pain 7/10; 03:54 Body Mass Index 25.92 (56.25 kg, 147.32 cm) pf1 03:54 Pain Scale: Adult pf1 MDM: 04:02 Patient medically screened. [facility] 04:42 Data reviewed: vital signs, nurses notes, lab test result(s), EKG, radiologic studies, [facility] CT scan, plain films. Consideration of Admission/Observation Escalation of care including admission/observation considered. I considered the following discharge prescriptions or medication management in the emergency department Medications were administered in the Emergency Department. See MAR. Independent interpretation of the following test(s) in the Emergency Department CT Scan: My interpretation is ct stone. Test considered but Not performed: Ultrasound no renal usg. Historians other than the Patient: Spouse/Significant Other: informed. Care significantly affected by the following chronic conditions: Hypertension, Obesity, anxiety, kidney stone, tia , migraine. 08/06 03:40 Order name: Basic Metabolic Panel; Complete Time: 07:18 [facility] 08/06 03:40 Order name: CBC with Diff; Complete Time: 07:18 [facility] 08/06 03:40 Order name: LFT's; Complete Time: 07:18 [facility] 08/06 03:40 Order name: Magnesium; Complete Time: 07:18 [facility] 08/06 03:40 Order name: NT PRO-BNP; Complete Time: 07:18 [facility] 08/06 03:40 Order name: PT-INR; Complete Time: 07:18 [facility] 08/06 03:40 Order name: Troponin HS; Complete Time: 07:18 [facility] 08/06 03:40 Order name: Lipase; Complete Time: 07:18 [facility] 08/06 03:40 Order name: Urinalysis w/ reflexes; Complete Time: 06:23 [facility] 08/06 03:40 Order name: XRAY Chest (1 view) [facility] 08/06 04:39 Order name: CT Stone Protocol [facility] 08/06 03:40 Order name: EKG; Complete Time: 03:41 [facility] 08/06 03:40 Order name: Cardiac monitoring; Complete Time: 07:38 [facility] 08/06 03:40 Order name: EKG - Nurse/Tech; Complete Time: 07:38 [facility] 08/06 03:40 Order name: IV Saline Lock; Complete Time: 05:05 [facility] 08/06 03:40 Order name: Labs collected and sent; Complete Time: 05:05 [facility] 08/06 03:40 Order name: O2 Per Protocol; Complete Time: 07:13 [facility] 08/06 03:40 Order name: O2 Sat Monitoring; Complete Time: 07:13 [facility] EC:28 Rate is 105 beats/min. Rhythm is regular. QRS [place] is Normal. MA interval is normal. [facility] QRS interval is normal. QT interval is normal. No Q waves. T waves are Normal. No ST changes noted. Clinical impression: Sinus tachycardia. Interpreted by me. Reviewed by me. Administered Medications: 06:58 Drug: Ondansetron IVP 4 mg IVP once; over 2 minutes Route: IVP; Site: right forearm; jw7 06:58 Drug: Famotidine IVP 20 mg IVP once; dilute with 10 mL 0.9% NaCl; give over 2 minutes jw7 Route: IVP; Site: right forearm; 08:00 Follow up: Response: No adverse reaction iw 06:58 Drug: morphine IVP or IV 2 mg IVP once over 4 mins Route: IVP; Infused Over: 4 mins; jw7 Site: right forearm; 08:00 Follow up: Response: No adverse reaction iw 06:58 Drug: Rocephin IV 1 grams IV at per protocol once; Given slow IV push per pharmacy jw7 instructions Route: IV; Rate: per protocol; Site: right forearm; 07:10 Follow up: IV Status: Completed infusion iw 06:58 Drug: Flomax PO 0.4 mg PO once Route: PO; jw7 06:58 Drug: NS 0.9% IV 1000 ml IV at 1 bolus Per protocol; 1000 mL bolus Route: IV; Rate: 1 jw7 bolus; Site: right forearm; 08:50 Follow up: IV Status: Completed infusion iw 06:58 Drug: Ciprofloxacin PO 500 mg PO once Route: PO; jw7 08:00 Follow up: Response: No adverse reaction iw 07:38 Drug: NS 0.9% IV 1000 ml IV at 1 bolus Per protocol; 1000 mL bolus Route: IV; Rate: 1 ld1 bolus; Site: right forearm; 08:50 Follow up: IV Status: Completed infusion iw 09:02 Drug: morphine IVP or IV 2 mg IVP once over 4 mins Route: IVP; Infused Over: 4 mins; iw Site: left wrist; 09:02 Follow up: Response: No adverse reaction iw Disposition Summary: 08/06/23 07:21 Discharge Ordered Notes: Location: Home jovon Problem: new jovon Symptoms: have improved jovon Condition: Stable jovon Diagnosis - Vomiting jovon - Nausea with vomiting, unspecified jovon - Hydronephrosis with renal and ureteral calculous obstruction - 3.5 right uvj jovon - UTI/ Urinary tract infection, site not specified jovon Followup: jovon - With: Private Physician - When: 2 - 3 days - Reason: Recheck today's complaints, Continuance of care, Re-evaluation by your physician Followup: jovon - With: Jagdish Nam MD - When: 2 - 3 days - Reason: Recheck today's complaints, Re-evaluation by your physician Discharge Instructions: - Discharge Summary Sheet jovon - Kidney Stones jovon - Nausea and Vomiting, Adult jovon - Nausea, Adult jovon - Urinary Tract Infection, Adult jovon - Kidney Stones, [id number] jovon - Nausea and Vomiting, Adult, [id number] jovon - Urinary Tract Infection, Adult, Duso-ud-Yjzh jovon - Hydronephrosis jovon - Dietary Guidelines to Help Prevent Kidney Stones jovon - Vomiting, Adult jovon Forms: - Medication Reconciliation Form jovon - Thank You Letter jovon - Antibiotic Education jovon - Prescription Opioid Use jovon - Patient Portal Instructions [facility] - Leadership Thank You Letter [facility] Prescriptions: - acetaminophen-codeine 300-30 mg Oral tablet - take 2 tablet ORAL route every 6 hours as needed for pain; 20 tablet; Refills: jovon 0, Product Selection Permitted - ondansetron 4 mg Oral Tablet,disintegrating - take 1 tablet ORAL route every 6-8 hours; 20 tablet; Refills: 0, Product jovon Selection Permitted - promethazine 25 mg Rectal suppository - insert 1 suppository RECTAL route every 6 hours as needed for nausea and jovon vomiting; 15 suppository; Refills: 0, Product Selection Permitted - Cipro 250 mg Oral tablet - take 1 tablet ORAL route every 12 hours; 15 tablet; Refills: 0, Product jovon Selection Permitted Signatures: Dispatcher [employer] EDKartik Calix MD MD cha Williams, Irene, RN RN iw Lizeth Riley RN RN ld1 Ines Alcantara RN RN jw7 Francine Resendiz RN RN pf1 Corrections: (The following items were deleted from the chart) 05:39 03:41 Abdomen Pelvis W Con+CT.RAD.BRZ ordered. EDMS EDMS
--- NOTE | 2023-08-06 07:22 | ER ---
Nurse's Notes [facility] Name: Amanda Valle Age: 67 yrs Sex: Female : 1955 Arrival Date: 08/06/2023 Time: 03:34 Bed 4 Private MD: Diagnosis: Vomiting;Nausea with vomiting, unspecified;Hydronephrosis with renal and ureteral calculous obstruction-3.5 right uvj;UTI/ Urinary tract infection, site not specified Presentation: 08/06 03:54 Chief complaint: Patient states: right flank pain and abdominal pain of 7 with pf1 nausea,onset 2200. Patient stated took Tylenol #3 and zofran at 2330. Patient stated was diagnosed with a kidney stone 07/17/23 here and followed up with Dr. Schmitz. Coronavirus screen: Client denies travel out of the [place] in the last 14 days. At this time, the client does not indicate any symptoms associated with coronavirus-19. Ebola Screen: Patient negative for fever greater than or equal to 101.5 degrees Fahrenheit, and additional compatible Ebola Virus Disease symptoms. Initial Sepsis Screen: Does the patient meet any 2 criteria? No. Patient's initial sepsis screen is negative. Does the patient have a suspected source of infection? No. Patient's initial sepsis screen is negative. Risk Assessment: Do you want to hurt yourself or someone else? Patient reports no desire to harm self or others. 03:54 Method Of Arrival: Ambulatory pf1 03:54 Acuity: ANDER 3 pf1 04:10 Onset of symptoms was August 05, 2023. jw7 Historical: - Allergies: 04:00 PENICILLINS; pf1 - PMHx: 04:00 acid reflux; Anxiety; Depression; High Cholesterol; Hypertension; Kidney stones; TIA; pf1 Migraine; - PSHx: 04:00 bilateral carpal tunnel; bladder suspension; Hemorrhoidectomy; right foot; Total pf1 abdominal hysterectomy; Tonsillectomy; - Immunization history:: Adult Immunizations up to date, 5 doses of pfizer and Moderna Last tetanus immunization: > 10 years ago Flu vaccine is up to date. - Social history:: Smoking status: Patient denies any tobacco usage or history of. Patient/guardian denies using alcohol, street drugs. Screenin:00 [facility] ED Fall Risk Assessment (Adult) History of falling in the last 3 months, jw7 including since admission No falls in past 3 months (0 pts) Score/Fall Risk Level 0 - 2 = Low Risk Oriented to surroundings, Maintained a safe environment, Educated pt \T\ family on fall prevention, incl call for assistance when getting out of bed. Abuse screen: Denies threats or abuse. Denies injuries from another. Nutritional screening: No deficits noted. Tuberculosis screening: No symptoms or risk factors identified. Assessment: 04:10 General: Appears in no apparent distress. uncomfortable, Behavior is calm, cooperative. jw7 Pain: Complains of pain in abdomen Pain does not radiate. Pain currently is 7 out of 10 on a pain scale. Quality of pain is described as sharp, throbbing, Pain began suddenly, Is continuous. Neuro: Sullivan Agitation-Sedation Scale (RASS): 0 - Alert and Calm Level of Consciousness is awake, alert, obeys commands, Oriented to person, place, time, situation. Cardiovascular: Capillary refill < 3 seconds Patient's skin is warm and dry. Respiratory: Airway is patent Trachea midline Respiratory effort is even, unlabored, Respiratory pattern is regular, symmetrical. GI: Bowel sounds present X 4 quads. Abd is soft Abdomen is tender to palpation. : No deficits noted. No signs and/or symptoms were reported regarding the genitourinary system. EENT: No deficits noted. No signs and/or symptoms were reported regarding the EENT system. Derm: No deficits noted. No signs and/or symptoms reported regarding the dermatologic system. Musculoskeletal: No deficits noted. No signs and/or symptoms reported regarding the musculoskeletal system. 05:30 Reassessment: Patient appears in no apparent distress at this time. No changes from jw7 previously documented assessment. Patient and/or family updated on plan of care and expected duration. Pain level reassessed. Patient is alert, oriented x 3, equal unlabored respirations, skin warm/dry/pink. 06:40 Reassessment: Patient appears in no apparent distress at this time. No changes from jw7 previously documented assessment. Patient and/or family updated on plan of care and expected duration. Pain level reassessed. Patient is alert, oriented x 3, equal unlabored respirations, skin warm/dry/pink. Vital Signs: 03:54 BP 168 / 79; Pulse 62; Resp 16; Temp 97.6; Pulse Ox 99% ; Weight 56.25 kg; Height 4 ft. pf1 10 in. ; Pain 7/10; 03:54 Body Mass Index 25.92 (56.25 kg, 147.32 cm) pf1 03:54 Pain Scale: Adult pf1 ED Course: 03:38 Patient arrived in ED. ag3 03:38 Kartik Herr MD is Attending Physician. jovon 03:59 Triage completed. pf1 04:08 Radiology exam delayed due to lab results not completed at this time. (BUN/Creatinine) eh4 IV insertion attempt and/or patient not having appropriate IV at this time. 04:10 Arm band placed on. jw7 04:10 Patient has correct armband on for positive identification. Bed in low position. Call jw7 light in reach. 05:05 Inserted saline lock: 20 gauge in right forearm, using aseptic technique. Blood km8 collected. 05:23 XRAY Chest (1 view) In Process Unspecified. EDMS 05:44 Guera Briggs, RN is Primary Nurse. vc1 06:08 CT Stone Protocol In Process Unspecified. EDMS 07:21 Jagdish Nam MD is Referral Physician. jovon 07:31 Primary Nurse role handed off by Guera Briggs RN eb 08:02 Christelle Bentley, TEODORA is Primary Nurse. iw Administered Medications: 06:58 Drug: Ondansetron IVP 4 mg IVP once; over 2 minutes Route: IVP; Site: right forearm; jw7 06:58 Drug: Famotidine IVP 20 mg IVP once; dilute with 10 mL 0.9% NaCl; give over 2 minutes jw7 Route: IVP; Site: right forearm; 08:00 Follow up: Response: No adverse reaction iw 06:58 Drug: morphine IVP or IV 2 mg IVP once over 4 mins Route: IVP; Infused Over: 4 mins; jw7 Site: right forearm; 08:00 Follow up: Response: No adverse reaction iw 06:58 Drug: Rocephin IV 1 grams IV at per protocol once; Given slow IV push per pharmacy jw7 instructions Route: IV; Rate: per protocol; Site: right forearm; 07:10 Follow up: IV Status: Completed infusion iw 06:58 Drug: Flomax PO 0.4 mg PO once Route: PO; jw7 06:58 Drug: NS 0.9% IV 1000 ml IV at 1 bolus Per protocol; 1000 mL bolus Route: IV; Rate: 1 jw7 bolus; Site: right forearm; 08:50 Follow up: IV Status: Completed infusion iw 06:58 Drug: Ciprofloxacin PO 500 mg PO once Route: PO; jw7 08:00 Follow up: Response: No adverse reaction iw 07:38 Drug: NS 0.9% IV 1000 ml IV at 1 bolus Per protocol; 1000 mL bolus Route: IV; Rate: 1 ld1 bolus; Site: right forearm; 08:50 Follow up: IV Status: Completed infusion iw 09:02 Drug: morphine IVP or IV 2 mg IVP once over 4 mins Route: IVP; Infused Over: 4 mins; iw Site: left wrist; 09:02 Follow up: Response: No adverse reaction iw Medication: 07:10 VIS not applicable for this client. jw7 Outcome: 07:21 Discharge ordered by . jovon 09:02 Patient left the ED. iw Signatures: Dispatcher [employer] EDMS Kartik Herr MD MD cha Williams, Irene RN RN iw Angela Alvarenga Alice ag3 Lizeth Riley RN RN ld1 Guera Briggs RN RN 1 Ines Alcantara RN RN jw7 Steffen Hutchinson 4 Francine Resendiz RN RN pf1 Lauren Kwon, RN RN km8
[2023-08-06 09:15] VITALS: BP 168/79; TEMP 97.6; O2SAT 99
--- NOTE | 2023-08-06 09:46 | P.HP ---
Patient History Date of Service: 08/06/23 Allergies Penicillins Allergy (Mild, Verified 03/28/12 03:49) Rash Physical Examination - Vital Signs Temperature: 97.6 F Blood Pressure: 168/79 Pulse: 62 Respirations: 16 - Studies Laboratory Data (last 24 hrs) 08/06/23 08/06/23 08/06/23 06:02 06:02 06:02 WBC 9.10 Hgb 13.3 Hct 38.8 Plt Count 290 PT 11.3 INR 1.03 Sodium 142 Potassium 3.5 BUN 22 H Creatinine 0.87 Glucose 110 H Magnesium 1.9 Total Bilirubin 0.3 AST 18 ALT 27 Alkaline Phosphatase 94 Lipase 17 Assessment and Plan - Advance Directives Does patient have a Living Will: No Does patient have a Durable POA for Healthcare: No
--- NOTE | 2023-08-06 18:18 | RAD REPORT ---
EXAM DESCRIPTION: RAD - Chest Single View - 08/06/2023 5:21 am XR Chest, one view CLINICAL HISTORY: ABDOMINAL DISTENTION. COMPARISON: April 29, 2023 FINDINGS: The heart is normal in size. The pulmonary vascularity is normal. The lungs are clear. No dense focal consolidation is seen. No evidence pleural effusions . No pneumothorax is seen. The osseous structures appear unremarkable . IMPRESSION: No acute cardiopulmonary process . Electronically signed by: Breanna John MD 08/06/2023 07:07 AM CONTENT PUBLISHER Due to temporary technical issues with the PACS/Fluency reporting system, reports are being signed by the in house radiologists without review as a courtesy to insure prompt reporting. The interpreting radiologist is fully responsible for the content of the report.
--- NOTE | 2023-08-06 18:24 | RAD REPORT ---
EXAM DESCRIPTION: CT - Stone Protocol - 08/06/2023 7:34 am Stone Protocol CLINICAL HISTORY: FLANK PAIN COMPARISON: 07/17/2023 TECHNIQUE: Sequential axial images were obtained with a multi-detector helical CT without administra tion of intravenous iodinated contrast material. Oral contrast was not given. Automatic exposure control (AEC), mA and/or kV adjustment by patient s ize, and/or iterative reconstructive technique was used, per departmental dose optimization program, during the performance of the CT examination. The lack of intravenous contrast limits detailed evaluation of the abdominal organs. FINDINGS: The visualized lung bases are clear. The non-contrast enhanced images of the liver demonstrate normal size and attenuation of the liver. The spleen, pancreas and adrenals are unremarkable. Gallbladder is surgically absent. Presence of tiny bilateral renal calculi are noted. Presence of a 1.6 cm cortical right renal cyst is noted. Presence of right pelvocaliectasis is noted. A dilated right ureter is seen with presence of a 3.5 mm obstructing calculus near the right UV junct ion. The calculus has descended from its earlier position in the pelvic ureter since the prior study. Normal appearance of the IVC, abdominal aorta and retroperitoneum are noted. The stomach is unremarkable. The loops of small bowel are unremarkable. The colon appears unremarka ble. Colonic diverticulosis is noted. The appendix is surgically absent.. The bladder is unremarkable. There is no pelvic or abdominal lymphadenopathy. No ascites. No fr ee air. Uterus and ovaries are surgically absent. The inguinal regions are unremarkable. The visualized bony structures are unremarkable. IMPRESSION: Presence of a 3.5 mm obstructing calculus near the right UV junction with right pelvocal iectasis and dilated right ureter. Presence of tiny bilateral renal calculi. Colonic diverticulosis. Electronically signed by: Breanna John MD 08/06/2023 07:17 AM TALENT ACQUISITION MANAGER Due to temporary technical issues with the PACS/Fluency reporting system, reports are being signed by the in house radiologists without review as a courtesy to insure prompt reporting. The interpreting radiologist is fully responsible for the content of the report.
== END ==
LOC: ER 03:34
DX: N13.2 Hydronephrosis with renal and ureteral calculous obstruction (principal); N39.0 Urinary tract infection, site not specified; Z87.442 Personal history of urinary calculi; Z88.0 Allergy status to penicillin
CPT/HCPCS: 85025; 81001; 80048; 36415; 83735; 85610; 80076; 84484; 83690; 83880; 76377; 74176; 71045; 99284; J2270 ×2; J2405 ×2; J7030; J0696

== ENCOUNTER 2024-01-28 05:32 | Emergency (ER) | payer OTHER ==
[2024-01-28] MEDS ORDERED: ONDANSETRON 4 MG/2 ML VIAL ONE ×2 (06:45→09:28)
[2024-01-28 06:46] LABS: Absolute Eosinophils 0.1 K/uL (0-0.5); Absolute Lymphocytes (CBC) 1.4 K/uL (0.7-4.9); Absolute Monocytes 0.6 K/uL (0.1-1.3); Absolute Neutrophil 6.4 K/uL (1.8-8.0); Basophils % 0.5 % (0-1.3); Eosinophils % 0.8 % (0-4.4); Hematocrit 39.7 % (36.0-45.0); Hemoglobin 13.8 g/dL (12.0-15.0); Lymphocytes % 16.8 % (15.3-44.8); MCH 33.1 pg (27.0-35.0); MCHC 34.8 g/dL (32.0-36.0); Monocytes % 6.8 % (3.3-12.3); Neutrophils % 75.1 % (41.7-73.7); Platelets 247 thou/uL (152-406); RBC Red Blood Cell Count 4.18 M/uL (3.86-4.86); Red Cell Distribution Width 12.7 % (12.1-15.2)
[2024-01-28] MEDS ORDERED: PANTOPRAZOLE 40 MG INJ ONE (06:46)
[2024-01-28] MEDS ORDERED: MORPHINE 4 MG/ML SYR ONE (06:46)
[2024-01-28] MEDS ORDERED: DIPHENOX/ATROP SULF 1 TAB PO ONE (06:46)
[2024-01-28] MEDS ORDERED: NA CHLORIDE 0.9% 1,000 ML ONE (06:47)
[2024-01-28] MEDS ORDERED: FAMOTIDINE 20 MG/2 ML VIAL IV ONE (06:47)
[2024-01-28 06:53] LABS: PT Prothrombin Time 11.8 SECONDS (9.4-12.5); Protime INR 1.07
[2024-01-28 07:03] LABS: Albumin 3.4 g/dL (3.4-5.0); Albumin/Globulin Ratio 1.1 (1.1-1.8); Anion Gap 8.5 mEq/L (5.0-15.0); Bilirubin Direct 0.2 mg/dL (0-0.2); Bilirubin Indirect, Calculated 0.4 mg/dL (0.2-0.8); Bilirubin Total 0.6 mg/dL (0.2-1.0); Globulin 3.2 g/dL (2.3-3.5); Potassium 3.5 mEq/L (3.5-5.1); Protein, Total 6.6 g/dL (6.4-8.2)
--- NOTE | 2024-01-28 08:22 | RAD REPORT ---
EXAM DESCRIPTION: CT - Abdomen Pelvis W Contrast - 01/28/2024 7:44 am CLINICAL HISTORY: ABD PAIN COMPARISON: Abdomen Pelvis Wo Contrast dated 12/27/2023; Stone Protocol dated 08/06/2023 TECHNIQUE: Thin cut axial CT imaging of the abdomen and pelvis was performed following intravenous a dministration of iodinated contrast. Multiplanar reformats were generated and reviewed. All CT scans are performed using dose optimization technique as appropriate and may include automated exposure control or mA/KV adjustment according to patient size. FINDINGS: No suspicious findings in the lung bases. The liver, spleen, adrenal glands, and pancreas show no suspicious findings. Gallbladder was surgical ly removed. Symmetric renal function is seen with no hydronephrosis or suspicious renal mass. Exophytic right cristhian al interpolar 2.1 cm cyst. No dilated bowel loops. Short segment of bowel wall thickening along the proximal sigmoid colon reach ing the junction with the descending colon, without significant mucosal hyperenhancement or fat stran ding. Nondistention limits evaluation. The appearance is not significantly changed. No free air, free fluid or inflammatory stranding. No hernia, mass or bulky lymphadenopathy. The urinary bladder is wi thout significant finding. No suspicious bony findings. IMPRESSION: No acute abdominal process. Short-segment of proximal sigmoid colon mild wall thickening she is stable, may suggest sequelae of p rior colitis or diverticulitis.
--- NOTE | 2024-01-28 09:20 | ER ---
Nurse's Notes [facility] Name: Amanda Valle Age: 68 yrs Sex: Female : 1955 Arrival Date: 01/28/2024 Time: 05:32 Bed 6 Private MD: Gunnar Brian Diagnosis: Left sided colitis without complications Presentation: 01/27 05:45 Chief complaint: Patient states: I started having abdominal cramping, diarrhea and some jw7 rectal bleeding that is bright red that started yesterday. Coronavirus screen: At this time, the client does not indicate any symptoms associated with coronavirus-19. Ebola Screen: No symptoms or risks identified at this time. 05:45 Method Of Arrival: Ambulatory jw7 05:45 Initial Sepsis Screen: Does the patient meet any 2 criteria? No. Patient's initial jw7 sepsis screen is negative. Does the patient have a suspected source of infection? No. Patient's initial sepsis screen is negative. Risk Assessment: Do you want to hurt yourself or someone else? Patient reports no desire to harm self or others. Onset of symptoms was January 27, 2024. 05:45 Acuity: ANDER 3 jw7 Triage Assessment: 05:45 General: Appears in no apparent distress. comfortable, Behavior is calm, cooperative, jw7 appropriate for age. Pain: Complains of pain in abdomen Pain does not radiate. Pain currently is 5 out of 10 on a pain scale. at worst was 9 out of 10 on a pain scale. Quality of pain is described as crampy, Pain began suddenly, Is intermittent. EENT: No deficits noted. No signs and/or symptoms were reported regarding the EENT system. Neuro: Level of Consciousness is awake, alert, obeys commands, Oriented to person, place, time, situation. Cardiovascular: Heart tones S1 S2 present Capillary refill < 3 seconds Clubbing of nail beds is absent JVD is absent Patient's skin is warm and dry. Respiratory: Airway is patent Trachea midline Respiratory effort is even, unlabored, Respiratory pattern is regular, symmetrical. GI: Abdomen is round non-distended, Bowel sounds present X 4 quads. Abd is soft Abdomen is tender to palpation. : No deficits noted. No signs and/or symptoms were reported regarding the genitourinary system. Derm: No deficits noted. No signs and/or symptoms reported regarding the dermatologic system. Musculoskeletal: Circulation, motion, and sensation intact. Range of motion: intact in all extremities. Historical: - Allergies: 05:45 PENICILLINS; jw7 - Home Meds: 05:45 alprazolam 0.5 mg oral Tablet, Extended Release 24 hr 1 tab prn [Active]; clopidogrel jw7 75 mg oral tablet 1 tab daily [Active]; pantoprazole 40 mg Oral TbEC 1 tab 2 times per day [Active]; topiramate 50 mg oral tablet 1 tab 2 times per day [Active]; Ubrelvy 100 mg oral tablet [Active]; - PMHx: 05:45 acid reflux; Anxiety; Depression; High Cholesterol; Hypertension; Kidney stones; jw7 Migraine; TIA; - PSHx: 05:45 bilateral carpal tunnel; bladder suspension; Hemorrhoidectomy; right foot; jw7 Tonsillectomy; Total abdominal hysterectomy; Cholecystectomy; - Immunization history:: Adult Immunizations up to date, Client reports receiving the 2nd dose of the Covid vaccine, Pneumococcal vaccine is not up to date, Flu vaccine is up to date. - Infectious Disease History:: Denies. - Social history:: Smoking status: Patient denies any tobacco usage or history of. Patient uses alcohol, but reports only rare drinking. Patient/guardian denies using street drugs, IV drugs. - Family history:: not pertinent. Screenin:00 [facility] ED Fall Risk Assessment (Adult) History of falling in the last 3 months, jw7 including since admission No falls in past 3 months (0 pts) Confusion or Disorientation No (0 pts) Intoxicated or Sedated No (0 pts) Impaired Gait No (0 pts) Mobility Assist Device Used No (0 pt) Altered Elimination No (0 pt) Score/Fall Risk Level 0 - 2 = Low Risk Oriented to surroundings, Maintained a safe environment, Educated pt \T\ family on fall prevention, incl call for assistance when getting out of bed. Abuse screen: Denies threats or abuse. Denies injuries from another. Nutritional screening: No deficits noted. Tuberculosis screening: No symptoms or risk factors identified. Assessment: 06:01 General: See Triage Assessment. jw7 07:00 Reassessment: Patient appears in no apparent distress at this time. No changes from 7 previously documented assessment. Patient and/or family updated on plan of care and expected duration. Pain level reassessed. Patient is alert, oriented x 3, equal unlabored respirations, skin warm/dry/pink. 07:25 General: Appears in no apparent distress. comfortable, Behavior is calm, cooperative, ld1 appropriate for age. Pain: Complains of pain in abdomen Pain does not radiate. Pain currently is 8 out of 10 on a pain scale. Quality of pain is described as throbbing, Pain began suddenly, Is intermittent. Neuro: Level of Consciousness is awake, alert, obeys commands, Oriented to person, place, time, situation. Cardiovascular: Capillary refill < 3 seconds Patient's skin is warm and dry. Respiratory: Airway is patent Respiratory effort is even, unlabored. GI: Abdomen is flat, non-distended, Reports lower abdominal pain, upper abdominal pain, rectal bleeding. : No signs and/or symptoms were reported regarding the genitourinary system. EENT: No signs and/or symptoms were reported regarding the EENT system. Derm: No signs and/or symptoms reported regarding the dermatologic system. Musculoskeletal: No signs and/or symptoms reported regarding the musculoskeletal system. 09:01 Reassessment: Patient appears in no apparent distress at this time. No changes from ld1 previously documented assessment. Patient and/or family updated on plan of care and expected duration. Pain level reassessed. 09:36 Reassessment: Patient appears in no apparent distress at this time. Patient is alert, nj1 oriented x 3, equal unlabored respirations, skin warm/dry/pink. Vital Signs: 05:45 BP 132 / 78; Pulse 64; Resp 18 S; Temp 98(O); Pulse Ox 98% on R/A; Weight 58.51 kg; jw7 Height 4 ft. 10 in. ; Pain 5/10; 07:00 BP 136 / 66; Pulse 53; Resp 16 S; Pulse Ox 97% on R/A; jw7 07:25 BP 123 / 58; Pulse 59; Resp 18; Pulse Ox 99% on R/A; ld1 09:01 BP 131 / 72; Pulse 55; Resp 18; Pulse Ox 97% on R/A; ld1 09:36 BP 118 / 63; Pulse 48; Resp 16; Pulse Ox 97% on R/A; nj1 05:45 Body Mass Index 26.96 (58.51 kg, 147.32 cm) jw7 05:45 Pain Scale: Adult jw7 Sarah Coma Score: 06:25 Eye Response: spontaneous(4). Motor Response: obeys commands(6). Verbal Response: sp4 oriented(5). Total: 15. ED Course: 05:37 Patient arrived in ED. gm2 05:37 Gunnar Brian MD is Private Physician. gm2 05:45 Arm band placed on. jw7 05:54 Triage completed. jw7 06:00 Patient has correct armband on for positive identification. Bed in low position. Call jw7 light in reach. Side rails up X2. Provided Education on: Use of Call Light. 06:05 Kyler Hooper MD is Attending Physician. vc1 06:39 Initial lab(s) drawn, by me, sent to lab. Inserted saline lock: 20 gauge in right kd4 antecubital area, using aseptic technique. Blood collected. 07:12 Attending Physician role handed off by Kyler Hooper MD rt 07:12 Joshua Donato MD is Attending Physician. rt 07:25 Lizeth Riley, TEODORA is Primary Nurse. ld1 07:26 No provider procedures requiring assistance completed. ld1 07:46 CT Abd/Pelvis - IV Contrast Only In Process Unspecified. EDMS 09:37 IV discontinued, intact, bleeding controlled, Pressure dressing applied. nj1 Administered Medications: 07:11 Drug: morphine IVP or IV 4 mg IVP once over 4 mins Route: IVP; Infused Over: 4 mins; jw7 Site: right antecubital; 09:36 Follow up: Response: No adverse reaction nj1 07:11 Drug: Ondansetron IVP 4 mg IVP once; over 2 minutes Route: IVP; Site: right antecubital;jw7 09:36 Follow up: Response: No adverse reaction nj1 07:11 Drug: NS 0.9% IV 1000 ml IV at 1 bolus Per protocol; 1000 mL bolus Route: IV; Rate: 1 jw7 bolus; Site: right antecubital; 09:35 Follow up: Response: No adverse reaction; IV Status: Completed infusion; IV Intake: nj1 1000ml 07:12 Drug: Famotidine IVP 20 mg IVP once; dilute with 10 mL 0.9% NaCl; give over 2 minutes jw7 Route: IVP; Site: right antecubital; 09:35 Follow up: Response: No adverse reaction nj1 07:12 Drug: Pantoprazole IVP 40 mg IVP once Route: IVP; Site: right antecubital; jw7 09:35 Follow up: Response: No adverse reaction nj1 07:27 Not Given (Patient Refused): diphenoxylate-atropine2 tabs PO once ld1 09:30 Drug: Ondansetron IVP 4 mg IVP once; over 2 minutes Route: IVP; Site: right antecubital;nj1 Medication: 07:26 VIS not applicable for this client. ld1 Intake: 09:35 IV: 1000ml; Total: 1000ml. nj1 Outcome: 09:19 Discharge ordered by MD. rt 09:37 Discharged to home ambulatory, with family, nj1 09:37 Condition: stable 09:37 Discharge instructions given to patient, Instructed on discharge instructions, follow up and referral plans. medication usage, Demonstrated understanding of instructions, follow-up care, medications, Prescriptions given X 3, 09:37 Patient left the ED. nj1 Signatures: Dispatcher [employer] EDMS Lizeth Riley RN RN ld1 Guera Briggs RN RN vc1 Ines Alcantara RN RN jw7 Joshua Donato MD MD rt Potepalov, Sergey, MD MD sp4 Grace Jacobs RN RN nj1 Ruby Grijalva 2 Keith Thompson RN RN kd4
--- NOTE | 2024-01-28 09:20 | EDPHYS ---
Physician Documentation [facility] Name: Amanda Valle Age: 68 yrs Sex: Female : 1955 Arrival Date: 01/28/2024 Time: 05:32 Bed 6 Private MD: Gunnar Brian ED Physician Joshua Donato HPI: 01/27 06:16 This 68 yrs old Female presents to ER via Ambulatory with complaints of Rectal sp4 Bleeding, Abdominal Cramping, Abdominal Pain. 06:25 68-year-old female presents with sudden onset of abdominal pain and bloody diarrhea sp4 associated with nausea starting yesterday.. Historical: - Allergies: 05:45 PENICILLINS; jw7 - Home Meds: 05:45 alprazolam 0.5 mg oral Tablet, Extended Release 24 hr 1 tab prn [Active]; clopidogrel jw7 75 mg oral tablet 1 tab daily [Active]; pantoprazole 40 mg Oral TbEC 1 tab 2 times per day [Active]; topiramate 50 mg oral tablet 1 tab 2 times per day [Active]; Ubrelvy 100 mg oral tablet [Active]; - PMHx: 05:45 acid reflux; Anxiety; Depression; High Cholesterol; Hypertension; Kidney stones; jw7 Migraine; TIA; - PSHx: 05:45 bilateral carpal tunnel; bladder suspension; Hemorrhoidectomy; right foot; jw7 Tonsillectomy; Total abdominal hysterectomy; Cholecystectomy; - Immunization history:: Adult Immunizations up to date, Client reports receiving the 2nd dose of the Covid vaccine, Pneumococcal vaccine is not up to date, Flu vaccine is up to date. - Infectious Disease History:: Denies. - Social history:: Smoking status: Patient denies any tobacco usage or history of. Patient uses alcohol, but reports only rare drinking. Patient/guardian denies using street drugs, IV drugs. - Family history:: not pertinent. ROS: 06:25 Constitutional: Negative for fever, chills, and weight loss, positive abdominal pain, sp4 positive nausea, positive bloody diarrhea 06:25 All other systems are negative, Exam: 06:25 Constitutional: This is a well developed, well nourished patient who is awake, alert, sp4 and in no acute distress. Head/Face: Normocephalic, atraumatic. Eyes: Pupils equal round and reactive to light, extra-ocular motions intact. Lids and lashes normal. Conjunctiva and sclera are not injected. Cornea within normal limits. Periorbital areas with no swelling, redness, or edema. ENT: Nares patent. No nasal discharge, no septal abnormalities noted. Tympanic membranes are normal and external auditory canals are clear. Oropharynx with no redness, swelling, or masses, exudates, or evidence of obstruction, uvula midline. Mucous membranes moist. Neck: Trachea midline, no thyromegaly or masses palpated, and no cervical lymphadenopathy. Supple, full range of motion without nuchal rigidity, or vertebral point tenderness. Chest/axilla: Normal chest wall appearance and motion. Nontender with no deformity. No lesions are appreciated. Cardiovascular: Regular rate and rhythm with a normal S1 and S2. No gallops, murmurs, or rubs. Normal PMI, no JVD. No pulse deficits. Respiratory: Lungs have equal breath sounds bilaterally, clear to auscultation and percussion. No rales, rhonchi or wheezes noted. No increased work of breathing, no retractions or nasal flaring. Abdomen/GI: Soft, with normal bowel sounds. No distension or tympany. No guarding or rebound. No evidence of tenderness throughout. Back: No spinal tenderness. No costovertebral tenderness. Skin: Warm, dry with normal turgor. Normal color with no rashes, no lesions, and no evidence of cellulitis. MS/ Extremity: Pulses equal, no cyanosis. Neurovascular intact. Full, normal range of motion. Neuro: Awake and alert, GCS 15, oriented to person, place, time, and situation. Cranial nerves II-XII grossly intact. Motor strength 5/5 in all extremities. Sensory grossly intact. Psych: Awake, alert, with orientation to person, place and time. Behavior, mood, and affect are within normal limits 07:04 ECG was reviewed by the Attending Physician. EKG at 0 653 sinus bradycardia at a sp4 rate of 55 otherwise normal 09:57 ECG was reviewed by the Attending Physician. rt Vital Signs: 05:45 BP 132 / 78; Pulse 64; Resp 18 S; Temp 98(O); Pulse Ox 98% on R/A; Weight 58.51 kg; jw7 Height 4 ft. 10 in. ; Pain 5/10; 07:00 BP 136 / 66; Pulse 53; Resp 16 S; Pulse Ox 97% on R/A; jw7 07:25 BP 123 / 58; Pulse 59; Resp 18; Pulse Ox 99% on R/A; ld1 09:01 BP 131 / 72; Pulse 55; Resp 18; Pulse Ox 97% on R/A; ld1 09:36 BP 118 / 63; Pulse 48; Resp 16; Pulse Ox 97% on R/A; nj1 05:45 Body Mass Index 26.96 (58.51 kg, 147.32 cm) jw7 05:45 Pain Scale: Adult jw7 Sarah Coma Score: 06:25 Eye Response: spontaneous(4). Motor Response: obeys commands(6). Verbal Response: sp4 oriented(5). Total: 15. MDM: 06:19 Patient medically screened. sp4 07:04 Differential diagnosis: hemorrhoids, fissure, abscess, condyloma. Data reviewed: vital sp4 signs, nurses notes, EKG, radiologic studies, CT scan. Consideration of Admission/Observation Escalation of care including admission/observation considered. 09:56 I considered the following discharge prescriptions or medication management in the rt emergency department Medications were administered in the Emergency Department. See MAR. Independent interpretation of the following test(s) in the Emergency Department CT Scan: My interpretation is No bowel obstruction seen on interpretation of CT scan images. Care significantly affected by the following chronic conditions: Hypertension. Counseling: I had a detailed discussion with the patient and/or guardian regarding the historical points, exam findings, and any diagnostic results supporting the discharge/admit diagnosis, lab results, radiology results, the need for outpatient follow up, to return to the emergency department if symptoms worsen or persist or if there are any questions or concerns that arise at home. Response to treatment: the patient's symptoms have markedly improved after treatment. ED course: Patient states that symptoms have improved, labs are reassuring. Discussed CT findings with the patient, will treat empirically for colitis. Patient instructed to follow-up with GI doctor for further evaluation. Patient return sooner if symptoms worsen. Patient is comfortable discharge.. 01/27 06:20 Order name: Basic Metabolic Panel; Complete Time: 07:04 sp4 01/27 06:20 Order name: CBC with Diff; Complete Time: 07:04 sp4 01/27 06:20 Order name: LFT's; Complete Time: 07:04 sp4 01/27 06:20 Order name: Lipase; Complete Time: 07:04 sp4 01/27 06:20 Order name: PT-INR; Complete Time: 07:04 sp4 01/27 06:25 Order name: CT Abd/Pelvis - IV Contrast Only; Complete Time: 08:51 sp4 01/27 06:20 Order name: Cardiac monitoring; Complete Time: 06:39 sp4 01/27 06:20 Order name: EKG - Nurse/Tech; Complete Time: 08:36 sp4 01/27 06:20 Order name: IV Saline Lock; Complete Time: 06:39 sp4 01/27 06:20 Order name: Labs collected and sent; Complete Time: 06:39 sp4 01/27 06:20 Order name: O2 Per Protocol; Complete Time: 06:39 sp4 01/27 06:20 Order name: O2 Sat Monitoring; Complete Time: 06:39 sp4 EC:04 Rate is 55 beats/min. Rhythm is regular, Normal Sinus Rhythm. QRS [place] is Normal. GA sp4 interval is normal. QRS interval is normal. QT interval is normal. No Q waves. T waves are Normal. No ST changes noted. Clinical impression: No evidence of ischemia. Interpreted by me. Reviewed by me. 09:57 Rate is 62 beats/min. Rhythm is regular, Normal Sinus Rhythm with No ectopy. QRS [place] rt is Normal. GA interval is normal. QRS interval is normal. QT interval is normal. No Q waves. T waves are Normal. No ST changes noted. Interpreted by me. Administered Medications: 07:11 Drug: morphine IVP or IV 4 mg IVP once over 4 mins Route: IVP; Infused Over: 4 mins; jw7 Site: right antecubital; 09:36 Follow up: Response: No adverse reaction nj1 07:11 Drug: Ondansetron IVP 4 mg IVP once; over 2 minutes Route: IVP; Site: right antecubital;jw7 09:36 Follow up: Response: No adverse reaction nj1 07:11 Drug: NS 0.9% IV 1000 ml IV at 1 bolus Per protocol; 1000 mL bolus Route: IV; Rate: 1 jw7 bolus; Site: right antecubital; 09:35 Follow up: Response: No adverse reaction; IV Status: Completed infusion; IV Intake: nj1 1000ml 07:12 Drug: Famotidine IVP 20 mg IVP once; dilute with 10 mL 0.9% NaCl; give over 2 minutes jw7 Route: IVP; Site: right antecubital; 09:35 Follow up: Response: No adverse reaction nj1 07:12 Drug: Pantoprazole IVP 40 mg IVP once Route: IVP; Site: right antecubital; jw7 09:35 Follow up: Response: No adverse reaction nj1 07:27 Not Given (Patient Refused): diphenoxylate-atropine2 tabs PO once ld1 09:30 Drug: Ondansetron IVP 4 mg IVP once; over 2 minutes Route: IVP; Site: right antecubital;nj1 Disposition Summary: 01/28/24 09:19 Discharge Ordered Notes: Location: Home rt Problem: new rt Symptoms: have improved rt Condition: Stable rt Diagnosis - Left sided colitis without complications rt Followup: rt - With: Private Physician - When: 2 - 3 days - Reason: Discharge Instructions: - Discharge Summary Sheet rt - Colitis rt Forms: - Medication Reconciliation Form rt - Antibiotic Education rt - Prescription Opioid Use rt - Patient Portal Instructions rt - Leadership Thank You Letter rt Prescriptions: - ondansetron 4 mg Oral Tablet,disintegrating - take 1 tablet ORAL route every 6 hours as needed for nausea; 15 tablet; rt Refills: 0, Product Selection Permitted - Cipro 500 mg Oral Tablet - take 1 tablet ORAL route every 12 hours for 10 days; 20 tablet; Refills: 0, rt Product Selection Permitted - Flagyl 500 mg Oral Tablet - take 1 tablet ORAL route every 8 hours for 10 days; 30 tablet; Refills: 0, rt Product Selection Permitted Signatures: Dispatcher [employer] EDMS Ines Alcantara RN RN jw7 Joshua Donato MD MD rt Kyler Hooper MD MD sp4 Grace Jacobs RN RN nj1 Lizeth Riley RN ld1 Corrections: (The following items were deleted from the chart) 06:20 06:20 BASIC METABOLIC PANEL+C.LAB.BRZ ordered. EDMS EDMS 06:20 06:20 CBC+H.LAB.BRZ ordered. EDMS EDMS 06:20 06:20 HEPATIC FUNCTION+C.LAB.BRZ ordered. EDMS EDMS 06:21 06:21 LIPASE+C.LAB.BRZ ordered. EDMS EDMS 06:21 PROTIME (+INR)+COAG.LAB.BRZ ordered. EDMS EDMS
[2024-01-28 09:58] VITALS: BP 118/63; TEMP 98; O2SAT 97
--- NOTE | 2024-01-29 13:30 | EKG ---
Test Date: 2024-01-28 Test Time: 08:26:34 Qc Lab Technician: Eloise ROSAS MEASUREMENT RESULTS: Intervals: Rate: 62 AK: 144 QRSD: 78 QT: 466 QTc: 472 [place]: P: 69 AK: 144 QRS: 35 T: 31 INTERPRETIVE STATEMENTS: Normal sinus rhythm Normal ECG Compared to ECG 03/08/2020 18:10:45 No significant changes Electronically Signed On 01-29-24 13:27:36 CDT by Deion Hollingsworth
== END 2024-01-28 09:37 | disposition home or self-care (01) ==
LOC: ER 05:32
DX: K51.50 Left sided colitis without complications (principal)
CPT/HCPCS: 96361; 93005; 85025; 80048; 36415; 85610; 80076; 83690; 74177; 96375; 96374; 99284; Q9967; C9113; J2405 ×2; J7030

== ENCOUNTER 2025-03-26 15:29 | Emergency (ER) | payer OTHER ==
[2025-03-26] MEDS ORDERED: MECLIZINE HCL 12.5 MG TAB ONE (16:22)
[2025-03-26 16:29] LABS: PT Prothrombin Time 12.5 SECONDS (10-13.0); Protime INR 1.11
[2025-03-26 16:37] LABS: Absolute Lymphocytes (CBC) 1.5 K/uL (0.7-4.9); Hematocrit 42.9 % (36.0-45.0); Hemoglobin 14.9 g/dL (12.0-15.0); MCH 32.5 pg (27.0-35.0); MCHC 34.6 g/dL (32.0-36.0); MCV 93.7 fL (80-100); MPV 8.2 fL (7.6-11.3); Nucleated RBC Absolute Count 0.0 (0-0); Nucleated Red Blood Cells % 0.1 % (0-0); RBC Red Blood Cell Count 4.58 M/uL (3.86-4.86); White Blood Count 7.20 thou/uL (4.3-10.9)
[2025-03-26 16:43] LABS: ALT/SGPT 33.0 U/L (13-56); AST/SGOT 23.0 U/L (15-37); Albumin 3.6 g/dL (3.4-5.0); Albumin/Globulin Ratio 1.1 (1.1-1.8); Alkaline Phosphatase 73.0 U/L (45-117); Anion Gap 11.5 mEq/L (5.0-15.0); BUN Blood Urea Nitrogen 15.0 mg/dL (7-18); Bilirubin Indirect, Calculated 0.4 mg/dL (0.2-0.8); Globulin 3.4 g/dL (2.3-3.5); Glucose Level 107.0 mg/dL (74-106); Magnesium 2.2 mg/dL (1.6-2.4); Potassium 3.5 mEq/L (3.5-5.1); Troponin High Sensitivity 4.1 pg/mL (<58.9)
--- NOTE | 2025-03-26 17:12 | RAD REPORT ---
EXAMINATION: ONE VIEW CHEST XR CLINICAL INDICATION: dizzy TECHNIQUE: Frontal chest projection is submitted. Examination is limited by patient positioning and t echnique. COMPARISON: 01/06/2024 FINDINGS: The lungs are well inflated and clear. The heart is normal in size. No displaced fractures identified . IMPRESSION: No acute intrathoracic abnormalities.
--- NOTE | 2025-03-26 17:13 | RAD REPORT ---
EXAM: CT brain without contrast HISTORY: DIZZINESS COMPARISON: 03/08/2020 TECHNIQUE: Multiple contiguous axial images were obtained and a CT of the brain without contrast. Sag ittal and coronal reformats were performed. One or more of the following dose reduction techniques were used: Automated exposure control, adjust ment of the mA and/or kV according to patient size, and/or iterative reconstruction. FINDINGS: No evidence of hydrocephalus, intracranial hemorrhage, or extra-axial fluid collection. Areas of gliosis is seen right basal ganglia, unchanged. No evidence of midline shift or areas of br ain edema. The calvarium is intact. The visualized paranasal sinuses and mastoid air cells are essentially clear . IMPRESSION: No evidence of acute intracranial abnormality.
--- NOTE | 2025-03-26 17:39 | EDPHYS ---
Physician Documentation [facility] Name: Amanda Valle Age: 69 yrs Sex: Female : 1955 Arrival Date: 03/26/2025 Time: 15:29 Bed 15 Private MD: ED Physician Prince Burger HPI: 03/26 16:11 This 69 yrs old Female presents to ER via Ambulatory with complaints of sp3 Dizziness, Nausea. 16:11 69-year-old female with history of hyperlipidemia, hypertension, Parkinson's, migraine sp3 headache, anxiety, depression, GERD, presents to the ED with chief complaint of vertigo room spinning type symptoms for the last 2 to 3 days. Patient describes as sudden onset when standing or certain positions. She denies any tinnitus, headache, neck pain, fever, recent URI symptoms, vomiting or diarrhea or any other signs or symptoms on ROS at this time. She does endorse mild nausea.. Historical: - Allergies: 15:56 PENICILLINS; dd2 - PMHx: 15:56 acid reflux; Anxiety; Depression; High Cholesterol; Hypertension; Kidney stones; dd2 Migraine; TIA; - PSHx: 15:56 bilateral carpal tunnel; bladder suspension; Cholecystectomy; Hemorrhoidectomy; right dd2 foot; Tonsillectomy; Total abdominal hysterectomy; - Immunization history:: Adult Immunizations up to date. - Infectious Disease History:: Denies. - Social history:: Smoking status: Patient denies any tobacco usage or history of. ROS: 16:12 Constitutional: Negative for fever, chills, and weight loss, Eyes: Negative for injury, sp3 pain, redness, and discharge, ENT: Negative for injury, pain, and discharge, Neck: Negative for injury, pain, and swelling, Cardiovascular: Negative for chest pain, palpitations, and edema, Respiratory: Negative for shortness of breath, cough, wheezing, and pleuritic chest pain, Abdomen/GI: Negative for abdominal pain, nausea, vomiting, diarrhea, and constipation, Back: Negative for injury and pain, MS/Extremity: Negative for injury and deformity, Skin: Negative for injury, rash, and discoloration, Psych: Negative for depression, anxiety, suicide ideation, homicidal ideation, and hallucinations, Allergy/Immunology: Negative for hives, rash, and allergies, Endocrine: Negative for neck swelling, polydipsia, polyuria, polyphagia, and marked weight changes, Hematologic/Lymphatic: Negative for swollen nodes, abnormal bleeding, and unusual bruising, 16:12 All other systems are negative, Exam: 16:12 Constitutional: This is a well developed, well nourished patient who is awake, alert, sp3 and in no acute distress. Head/Face: Normocephalic, atraumatic. Eyes: Pupils equal round and reactive to light, extra-ocular motions intact. Lids and lashes normal. Conjunctiva and sclera are non-icteric and not injected. Cornea within normal limits. Periorbital areas with no swelling, redness, or edema. Neck: Trachea midline, no thyromegaly or masses palpated, and no cervical lymphadenopathy. Supple, full range of motion without nuchal rigidity, or vertebral point tenderness. No Meningismus. Chest/axilla: Normal chest wall appearance and motion. Nontender with no deformity. No lesions are appreciated. Cardiovascular: Regular rate and rhythm with a normal S1 and S2. No gallops, murmurs, or rubs. Normal PMI, no JVD. No pulse deficits. Respiratory: Lungs have equal breath sounds bilaterally, clear to auscultation and percussion. No rales, rhonchi or wheezes noted. No increased work of breathing, no retractions or nasal flaring. Abdomen/GI: Soft, non-tender, with normal bowel sounds. No distension or tympany. No guarding or rebound. No evidence of tenderness throughout. Back: No spinal tenderness. No costovertebral tenderness. Full range of motion. Skin: Warm, dry with normal turgor. Normal color with no rashes, no lesions, and no evidence of cellulitis. MS/ Extremity: Pulses equal, no cyanosis. Neurovascular intact. Full, normal range of motion. Neuro: Awake and alert, GCS 15, oriented to person, place, time, and situation. Cranial nerves II-XII grossly intact. Motor strength 5/5 in all extremities. Sensory grossly intact. Cerebellar exam normal. Normal gait. Psych: Awake, alert, with orientation to person, place and time. Behavior, mood, and affect are within normal limits. 16:12 Eyes: Horizontal nystagmus noted. Vertigo was also inducible upon movement.. Vital Signs: 15:55 BP 143 / 74; Pulse 71; Resp 16; Temp 98.2; Pulse Ox 100% ; Weight 58.97 kg; Height 4 dd2 ft. 11 in. ; Pain 0/10; 17:50 BP 122 / 60; Pulse 56; Resp 16; Pulse Ox 98% on R/A; jb4 15:55 Body Mass Index 26.26 (58.97 kg, 149.86 cm) dd2 15:55 Pain Scale: Adult dd2 MDM: 15:55 Medical Screening Exam initiated sp3 16:13 Data reviewed: vital signs, nurses notes, old medical records, lab test result(s), EKG, sp3 radiologic studies. ED course: 69-year-old female with vertigo. Differential diagnosis includes central vertigo including tumor, mass, other space-occupying lesion, bleeding, among others. Also on the differential is peripheral vertigo consisting of viral illness, Mnire's and labyrinthitis. Will obtain CT scan of the head, general labs, EKG and general supportive care. Meclizine p.o. as I believe this is likely peripheral vertigo. Disposition pending workup and patient course.. 17:37 ED course: Patient improved in terms of dizziness. She still nauseated. Will administer sp3 ondansetron IV. CT scan is negative. I believe this is peripheral vertigo. Will discharge on meclizine and follow-up with ENT.. 03/26 15:57 Order name: Basic Metabolic Panel; Complete Time: 16:46 sp3 03/26 15:57 Order name: CBC with Diff; Complete Time: 16:46 sp3 03/26 15:57 Order name: Hepatic Function; Complete Time: 16:46 sp3 03/26 15:57 Order name: Magnesium; Complete Time: 16:46 sp3 03/26 15:57 Order name: Protime (+inr); Complete Time: 16:46 sp3 03/26 15:57 Order name: Troponin High Sensitivity; Complete Time: 16:46 sp3 03/26 15:57 Order name: CT Head Brain wo Cont; Complete Time: 17:21 sp3 03/26 15:57 Order name: Chest Single View XRAY; Complete Time: 17:21 sp3 03/26 15:57 Order name: EKG; Complete Time: 15:58 sp3 03/26 15:57 Order name: Cardiac monitoring; Complete Time: 16:17 sp3 03/26 15:57 Order name: EKG - Nurse/Tech; Complete Time: 16:17 sp3 03/26 15:57 Order name: IV Saline Lock; Complete Time: 16:17 sp3 03/26 15:57 Order name: Labs collected and sent; Complete Time: 16:17 sp3 03/26 15:57 Order name: NPO; Complete Time: 16:00 sp3 03/26 15:57 Order name: O2 Per Protocol; Complete Time: 16:00 sp3 03/26 15:57 Order name: O2 Sat Monitoring; Complete Time: 16:00 sp3 Administered Medications: 16:32 Drug: Meclizine PO 25 mg PO once Route: PO; jb4 17:52 Follow up: Response: No adverse reaction; Marked relief of symptoms jb4 Disposition Summary: 03/26/25 17:38 Discharge Ordered Notes: Location: Home sp3 Condition: Stable sp3 Diagnosis - Peripheral vertigo sp3 Followup: sp3 - With: Blaire Holland MD - When: Upon discharge from the Emergency Department - Reason: Continuance of care Discharge Instructions: - Discharge Summary Sheet sp3 - Vertigo sp3 Forms: - Medication Reconciliation Form sp3 - Antibiotic Education sp3 - Prescription Opioid Use sp3 - Patient Portal Instructions sp3 - Leadership Thank You Letter sp3 Prescriptions: - ondansetron 4 mg Oral Tablet,disintegrating - take 1 tablet ORAL route every 12 hours as needed for nausea and vomiting; 15 sp3 tablet; Refills: 0, Product Selection Permitted - Meclizine 25 mg Oral Tablet - take 1 tablet ORAL route every 8 hours As needed; 30 tablet; Refills: 0, sp3 Product Selection Permitted Signatures: Dispatcher [employer] Matthias Chatterjee, RN RN jb4 Prince Burger MD MD sp3 JEANIE CHARLES RN RN dd2
--- NOTE | 2025-03-26 17:39 | ER ---
Nurse's Notes [facility] Name: Amanda Valle Age: 69 yrs Sex: Female : 1955 Arrival Date: 03/26/2025 Time: 15:29 Bed 15 Private MD: Diagnosis: Peripheral vertigo Presentation: 03/26 15:55 Chief complaint: Patient states: SHE HAD DIZZINESS STARTING YESTERDAY BUT TODAY IS dd2 WORSE, FEELS ROOM SPINNING AND HAVING NAUSEA. Coronavirus screen: At this time, the client does not indicate any symptoms associated with coronavirus-19. Ebola Screen: No symptoms or risks identified at this time. Initial Sepsis Screen: Does the patient meet any 2 criteria? No. Patient's initial sepsis screen is negative. Does the patient have a suspected source of infection? No. Patient's initial sepsis screen is negative. Risk Assessment: Do you want to hurt yourself or someone else? Patient reports no desire to harm self or others. Onset of symptoms was March 25, 2025. 15:55 Method Of Arrival: Ambulatory dd2 15:55 Acuity: ANDER 3 dd2 Triage Assessment: 15:56 General: Appears in no apparent distress. uncomfortable, Behavior is calm, cooperative, dd2 appropriate for age. Pain: Denies pain. Neuro: Reports dizziness, since 03/25/2025. GI: Reports nausea. Historical: - Allergies: 15:56 PENICILLINS; dd2 - PMHx: 15:56 acid reflux; Anxiety; Depression; High Cholesterol; Hypertension; Kidney stones; dd2 Migraine; TIA; - PSHx: 15:56 bilateral carpal tunnel; bladder suspension; Cholecystectomy; Hemorrhoidectomy; right dd2 foot; Tonsillectomy; Total abdominal hysterectomy; - Immunization history:: Adult Immunizations up to date. - Infectious Disease History:: Denies. - Social history:: Smoking status: Patient denies any tobacco usage or history of. Screenin:40 [facility] ED Fall Risk Assessment (Adult) History of falling in the last 3 months, jb4 including since admission No falls in past 3 months (0 pts) Confusion or Disorientation No (0 pts) Intoxicated or Sedated No (0 pts) Impaired Gait No (0 pts) Mobility Assist Device Used No (0 pt) Altered Elimination No (0 pt) Score/Fall Risk Level 0 - 2 = Low Risk Oriented to surroundings, Maintained a safe environment. Abuse screen: Denies threats or abuse. Nutritional screening: No deficits noted. Tuberculosis screening: No symptoms or risk factors identified. Assessment: 16:20 General: Appears in no apparent distress. uncomfortable, well groomed, well developed, af3 Behavior is calm, cooperative, appropriate for age. Pain: Complains of pain in left temporal area Pain does not radiate. Pain currently is 5 out of 10 on a pain scale. Is continuous. Neuro: Level of Consciousness is awake, alert, obeys commands, Oriented to person, place, time, situation, Appropriate for age. Neuro: Reports headache in left. Cardiovascular: Patient's skin is warm and dry. Respiratory: Airway is patent Respiratory effort is even, unlabored, Respiratory pattern is regular, symmetrical. GI: Abdomen is flat. : No signs and/or symptoms were reported regarding the genitourinary system. EENT: No signs and/or symptoms were reported regarding the EENT system. Derm: Skin is intact, Skin is pink, warm \T\ dry. Musculoskeletal: No signs and/or symptoms reported regarding the musculoskeletal system. 17:40 Reassessment: Patient appears in no apparent distress at this time. Patient and/or jb4 family updated on plan of care and expected duration. Pain level reassessed. Patient is alert, oriented x 3, equal unlabored respirations, skin warm/dry/pink. Vital Signs: 15:55 BP 143 / 74; Pulse 71; Resp 16; Temp 98.2; Pulse Ox 100% ; Weight 58.97 kg; Height 4 dd2 ft. 11 in. ; Pain 0/10; 17:50 BP 122 / 60; Pulse 56; Resp 16; Pulse Ox 98% on R/A; jb4 15:55 Body Mass Index 26.26 (58.97 kg, 149.86 cm) dd2 15:55 Pain Scale: Adult dd2 ED Course: 15:32 Patient arrived in ED. cj3 15:35 Prince Burger MD is Attending Physician. sp3 15:56 Triage completed. dd2 15:56 Arm band placed on right wrist. dd2 16:17 Inserted saline lock: 20 gauge in right antecubital area, using aseptic technique. jb4 Blood collected. Flushed with 10 mL NS. 16:17 Initial lab(s) drawn, by ED staff, sent to lab. jb4 16:17 EKG done, by ED staff, reviewed by Prince Burger MD. jb4 16:27 Troponin High Sensitivity Sent. jb4 16:27 Protime (+inr) Sent. jb4 16:27 Magnesium Sent. jb4 16:27 Hepatic Function Sent. jb4 16:27 CBC with Diff Sent. jb4 16:27 Basic Metabolic Panel Sent. jb4 16:39 Chest Single View XRAY In Process Unspecified. EDMS 16:48 CT Head Brain wo Cont In Process Unspecified. EDMS 17:38 Blaire Holland MD is Referral Physician. sp3 17:40 Patient has correct armband on for positive identification. Bed in low position. Call jb4 light in reach. Side rails up X 1. Provided Education on: plan of care. 17:40 No provider procedures requiring assistance completed. jb4 17:50 Matthias Greer, RN is Primary Nurse. jb4 17:50 IV discontinued, intact, bleeding controlled, No redness/swelling at site. Pressure jb4 dressing applied. Administered Medications: 16:32 Drug: Meclizine PO 25 mg PO once Route: PO; jb4 17:52 Follow up: Response: No adverse reaction; Marked relief of symptoms jb4 Medication: 17:40 VIS not applicable for this client. jb4 Outcome: 17:38 Discharge ordered by . sp3 17:50 Discharged to home via wheelchair, with family, jb4 17:50 Condition: stable 17:50 Discharge instructions given to patient, Instructed on discharge instructions, follow up and referral plans. no drinking with medication, no driving heavy equipment, medication usage, Demonstrated understanding of instructions, follow-up care, medications, Prescriptions given X 2, 17:52 Patient left the ED. jb4 Signatures: Dispatcher [employer] EDMS Matthias Greer, RN RN jb4 Prince Burger MD MD sp3 Magdalena Palacios RN RN af3 JEANIE CHARLES RN RN dd2 Martha Hamilton cj3
[2025-03-26 21:04] VITALS: TEMP 98.2
[2025-03-26 21:06] VITALS: BP 122/60; O2SAT 98
== END 2025-03-26 17:52 | disposition home or self-care (01) ==
LOC: ER 15:29
DX: H81.399 Other peripheral vertigo, unspecified ear (principal); G20.A1 Parkinson's disease without dyskinesia, without mention of fluctuations
CPT/HCPCS: 93005; 85025; 80048; 36415; 83735; 85610; 80076; 84484; 70450; 71045; 99284; J8597